=== PATIENT | male | born 1950 | race Caucasian/White ===

== ENCOUNTER → 2023-07-20 14:51 | Outpatient (REF) | payer MEDICARE, OTHER, SELFPAY ==
[2023-07-20 15:31] LABS: % Basophils 0.6 % (0-2); % Eosinophils 0.5 % (0-6); % Immature Granulocytes 0.4 % (0-0.5); % Monocytes 3.8 % (1.7-9.3); % Neutrophils 83.7 % (42.2-75.2); Absolute Basophils 0.1 10^3/uL (0-0.2); Absolute Eosinophils 0.1 10^3/uL (0-0.7); Absolute Lymphocytes 1.2 10^3/uL (1.2-3.4); Absolute Monocytes 0.4 10^3/uL (0.1-0.6); Absolute Neutrophils 9.1 10^3/uL (1.4-6.5); Hematocrit 38.9 % (39.0-52.0); Hemoglobin 13.2 g/dL (13.0-18.0); Mean Corp Hgb Conc. 33.9 g/dL (33.0-37.0); Mean Corpuscular Hgb 30.1 pg (27.0-31.0); Mean Corpuscular Volume 88.8 fL (80.0-94.0); Mean Platelet Volume 9.6 fL (7.4-10.4); Nucleated Red Blood Cells % 0 % (-); Platelet Count 247 10^3/uL (130-400); Red Blood Cell Count 4.38 10^6/uL (4.70-6.10); Red Cell Dist. Width 14.6 % (11.5-14.5); White Blood Cell Count 10.9 10^3/uL (4.8-10.8)
[2023-07-20 15:40] LABS: ALT (SGPT) 40 U/L (0-50); AST (SGOT) 33 U/L (17-59); Albumin 4.1 g/dl (3.5-5.0); Alkaline Phosphatase 58 U/L (38-126); Blood Urea Nitrogen 27 mg/dl (9-20); Calcium 9.5 mg/dl (8.4-10.2); Carbon Dioxide 27 mmol/L (22-30); Chloride 104 mmol/L (98-107); Glucose 120 mg/dl (70-99); Iron 101 ug/dl (49-181); Sodium 137 mmol/L (135-145); Total Bilirubin 0.6 mg/dl (0.2-1.3); Total Protein 7.4 g/dl (6.3-8.2); eGFR 45.21
[2023-07-20 15:47] LABS: Potassium 4.9 mmol/L (3.5-5.1)
[2023-07-20 15:50] LABS: Percent Saturation 30 % (20-50); Total Iron Binding Capacity 330 ug/dl (261-462)
[2023-07-20 15:58] LABS: Free T4 0.77 ng/dl (0.78-2.19)
[2023-07-20 16:12] LABS: TSH 5.65 uIU/ml (0.47-4.68)
[2023-07-20 17:53] LABS: Free T3 4.05 pg/ml (2.77-5.27)
== END ==
LOC: REG 14:51
PROVIDERS: ATTENDING PHYSICIAN Nurse Practitioner Family; FAMILY PHYSICIAN Family Medicine
DX: E06.3 Autoimmune thyroiditis (principal); R53.82 Chronic fatigue, unspecified
CPT/HCPCS: 36415; 80053; 83540; 83550; 84439; 84443; 84481; 85025

== ENCOUNTER → 2023-08-01 10:19 | Outpatient (REF) | payer MEDICARE, OTHER, SELFPAY ==
[2023-08-01 11:57] LABS: Urine Albumin Negative (Neg - Trace); Urine Bilirubin Negative (Negative); Urine Character Clear (Clear); Urine Color Yellow; Urine Glucose Negative (Negative); Urine Ketone Negative (Negative); Urine Leukocyte Negative (Negative); Urine Nitrite Negative (Negative); Urine Occult Blood Negative (Negative); Urine Specific Gravity 1.015 (<1.030); Urine Urobilinogen Negative (Neg - 1+); Urine pH 6.5 (5.0-9.0)
[2023-08-01 12:56] LABS: Protein/creatinine Ratio 0.1; Urine Protein 8 mg/dl
[2023-08-01 14:54] LABS: Urine Squamous Cell 0-2 /LPF (Few)
[2023-08-01 14:55] LABS: Urine Red Blood Cell 0-2 /HPF (0-2); Urine White Cell 0-2 /HPF (0-5)
[2023-08-02 15:34] LABS: Rheumatoid Agglutinin Less Than 10 IU (<10 IU)
[2023-08-02 18:40] LABS: Angiotensin-1-converting Enzym 27 U/L (16-85)
[2023-08-03 00:55] LABS: CCP Antibody IgG/IgA 7 Units (0-19)
[2023-08-03 04:02] LABS: ANA, IgG Reflex to HEp-2 Detected (None Detected)
[2023-08-03 11:04] LABS: SSA 52 (Ro)(ENA) Ab, IgG 2 AU/mL (0-40); SSA 60 (Ro)(ENA) Ab, IgG 1 AU/mL (0-40); SSB (La)(ENA) Ab, IgG 2 AU/mL (0-40)
[2023-08-04 02:05] LABS: Albumin 4.16 g/dL (3.75-5.01); Alpha 1 Globulin 0.37 g/dL (0.19-0.46); Alpha 2 Globulin 0.87 g/dL (0.48-1.05); SPEP IFE Reflex Not Done; Total Protein-Electrophoresis 7.9 g/dL (6.3-8.2)
[2023-08-04 12:13] LABS: ANA, HEp-2, IgG Detected (<1:80)
[2023-08-06 07:25] LABS: ANA Pattern Homogeneous
== END ==
LOC: RAD 10:19
PROVIDERS: ATTENDING PHYSICIAN Internal Medicine Rheumatology; FAMILY PHYSICIAN Family Medicine
DX: Z13.820 Encounter for screening for osteoporosis (principal); M35.00 Sjogren syndrome, unspecified; N28.9 Disorder of kidney and ureter, unspecified; R76.8 Other specified abnormal immunological findings in serum; Z51.81 Encounter for therapeutic drug level monitoring; M81.0 Age-related osteoporosis without current pathological fracture
CPT/HCPCS: 36415; 77080; 81003; 81015; 82164; 82570; 84155; 84156; 84165; 86038; 86039; 86140; 86200; 86235; 86430

== ENCOUNTER → 2023-08-21 14:12 | Outpatient (REF) | payer MEDICARE, OTHER, SELFPAY ==
[2023-08-21 15:23] LABS: Free T3 6.18 pg/ml (2.77-5.27)
[2023-08-21 15:36] LABS: TSH 0.04 uIU/ml (0.47-4.68)
== END ==
LOC: REG 14:12
PROVIDERS: ATTENDING PHYSICIAN Internal Medicine Endocrinology, Diabetes & Metabolism; FAMILY PHYSICIAN Family Medicine; OTHER PHYSICIAN Internal Medicine Critical Care Medicine; REFERRING PHYSICIAN Internal Medicine Rheumatology
DX: E05.90 Thyrotoxicosis, unspecified without thyrotoxic crisis or storm (principal)
CPT/HCPCS: 36415; 84439; 84443; 84481

== ENCOUNTER → 2023-09-12 13:40 | Outpatient (REF) | payer MEDICARE, OTHER, SELFPAY ==
[2023-09-12 14:44] LABS: C-Reactive Protein < 5.00 mg/L (0.0-10.00)
[2023-09-13 05:38] LABS: Complement C3 120 mg/dl (88-165)
[2023-09-15 02:11] LABS: ds-DNA Ab, IgG Reflex To Titer 6 IU (0-24)
[2023-09-15 07:58] LABS: Smith/RNP (ENA), IgG 89 Units (0-19)
[2023-09-15 09:51] LABS: Centromere Antibody 1 AU/mL (0-40); Scleroderma Antibody (Scl-70) 2 AU/mL (0-40)
== END ==
LOC: REG 13:40
PROVIDERS: ATTENDING PHYSICIAN Internal Medicine Rheumatology; FAMILY PHYSICIAN Family Medicine
DX: M35.00 Sjogren syndrome, unspecified (principal); M35.9 Systemic involvement of connective tissue, unspecified; N28.9 Disorder of kidney and ureter, unspecified; Z51.81 Encounter for therapeutic drug level monitoring
CPT/HCPCS: 36415; 83516; 86140; 86160; 86225; 86235

== ENCOUNTER → 2023-10-01 10:49 | Outpatient (REF) | payer MEDICARE, OTHER, SELFPAY ==
[2023-10-01 11:57] LABS: % Basophils 0.7 % (0-2); % Eosinophils 3.4 % (0-6); % Immature Granulocytes 0.3 % (0-0.5); % Monocytes 9.3 % (1.7-9.3); % Neutrophils 65.3 % (42.2-75.2); Absolute Basophils 0.1 10^3/uL (0-0.2); Absolute Eosinophils 0.3 10^3/uL (0-0.7); Absolute Lymphocytes 1.6 10^3/uL (1.2-3.4); Absolute Monocytes 0.7 10^3/uL (0.1-0.6); Hemoglobin 13.4 g/dL (13.0-18.0); Mean Corp Hgb Conc. 32.7 g/dL (33.0-37.0); Mean Corpuscular Hgb 30.1 pg (27.0-31.0); Mean Corpuscular Volume 92.1 fL (80.0-94.0); Mean Platelet Volume 9.5 fL (7.4-10.4); Nucleated Red Blood Cells % 0 % (-); Platelet Count 285 10^3/uL (130-400); Red Blood Cell Count 4.45 10^6/uL (4.70-6.10); Red Cell Dist. Width 14.6 % (11.5-14.5); White Blood Cell Count 7.6 10^3/uL (4.8-10.8)
[2023-10-01 14:21] LABS: ALT (SGPT) 26 U/L (0-50); AST (SGOT) 28 U/L (17-59); Albumin 4.3 g/dl (3.5-5.0); Alkaline Phosphatase 61 U/L (38-126); Direct Bilirubin 0.4 mg/dl (0.0-0.4); Total Bilirubin 0.6 mg/dl (0.2-1.3); Total Protein 7.7 g/dl (6.3-8.2)
== END ==
LOC: REG 10:49
PROVIDERS: ATTENDING PHYSICIAN Internal Medicine Critical Care Medicine; FAMILY PHYSICIAN Family Medicine
DX: J84.9 Interstitial pulmonary disease, unspecified (principal); Z79.899 Other long term (current) drug therapy
CPT/HCPCS: 36415; 80076; 85025

== ENCOUNTER → 2023-10-22 11:06 | Outpatient (REF) | payer MEDICARE, OTHER, SELFPAY ==
[2023-10-22 12:55] LABS: ALT (SGPT) 36 U/L (0-50); AST (SGOT) 30 U/L (17-59)
[2023-10-22 13:13] LABS: Free T3 3.24 pg/ml (2.77-5.27); Free T4 0.75 ng/dl (0.78-2.19)
== END ==
LOC: REG 11:06
PROVIDERS: ATTENDING PHYSICIAN Internal Medicine Endocrinology, Diabetes & Metabolism; FAMILY PHYSICIAN Family Medicine
DX: E06.3 Autoimmune thyroiditis (principal)
CPT/HCPCS: 36415; 84439; 84443; 84450; 84460; 84481

== ENCOUNTER → 2023-10-26 11:50 | Outpatient (REF) | payer MEDICARE, OTHER, SELFPAY ==
[2023-10-26 12:41] LABS: % Basophils 0.8 % (0-2); % Eosinophils 2.4 % (0-6); % Immature Granulocytes 0.4 % (0-0.5); % Lymphocytes 18.7 % (20.5-51.1); % Monocytes 7.3 % (1.7-9.3); % Neutrophils 70.4 % (42.2-75.2); Absolute Basophils 0.1 10^3/uL (0-0.2); Absolute Eosinophils 0.3 10^3/uL (0-0.7); Absolute Lymphocytes 1.9 10^3/uL (1.2-3.4); Absolute Monocytes 0.8 10^3/uL (0.1-0.6); Absolute Neutrophils 7.3 10^3/uL (1.4-6.5); Hemoglobin 14.5 g/dL (13.0-18.0); Mean Corpuscular Volume 91.1 fL (80.0-94.0); Mean Platelet Volume 9.8 fL (7.4-10.4); Nucleated Red Blood Cells % 0 % (-); Platelet Count 276 10^3/uL (130-400); Red Blood Cell Count 4.83 10^6/uL (4.70-6.10); Red Cell Dist. Width 14.8 % (11.5-14.5); White Blood Cell Count 10.3 10^3/uL (4.8-10.8)
[2023-10-26 13:05] LABS: ALT (SGPT) 59 U/L (0-50); AST (SGOT) 41 U/L (17-59); Albumin 4.4 g/dl (3.5-5.0); Alkaline Phosphatase 66 U/L (38-126); Direct Bilirubin 0.3 mg/dl (0.0-0.4); Total Bilirubin 0.4 mg/dl (0.2-1.3); Total Protein 8.1 g/dl (6.3-8.2)
== END ==
LOC: REG 11:50
PROVIDERS: ATTENDING PHYSICIAN Internal Medicine Critical Care Medicine; FAMILY PHYSICIAN Family Medicine
DX: J84.9 Interstitial pulmonary disease, unspecified (principal); Z79.899 Other long term (current) drug therapy
CPT/HCPCS: 36415; 80076; 85025

== ENCOUNTER → 2023-11-12 11:02 | Outpatient (REF) | payer MEDICARE, OTHER, SELFPAY ==
[2023-11-12 12:02] LABS: % Basophils 0.7 % (0-2); % Eosinophils 2.7 % (0-6); % Immature Granulocytes 0.2 % (0-0.5); % Lymphocytes 18.7 % (20.5-51.1); % Neutrophils 69.7 % (42.2-75.2); Absolute Basophils 0.1 10^3/uL (0-0.2); Absolute Eosinophils 0.3 10^3/uL (0-0.7); Absolute Lymphocytes 1.9 10^3/uL (1.2-3.4); Absolute Monocytes 0.8 10^3/uL (0.1-0.6); Absolute Neutrophils 7.1 10^3/uL (1.4-6.5); Hematocrit 44.7 % (39.0-52.0); Hemoglobin 14.4 g/dL (13.0-18.0); Mean Corp Hgb Conc. 32.2 g/dL (33.0-37.0); Mean Corpuscular Hgb 30.4 pg (27.0-31.0); Mean Corpuscular Volume 94.5 fL (80.0-94.0); Nucleated Red Blood Cells % 0 % (-); Platelet Count 204 10^3/uL (130-400); Red Blood Cell Count 4.73 10^6/uL (4.70-6.10); Red Cell Dist. Width 14.7 % (11.5-14.5); White Blood Cell Count 10.1 10^3/uL (4.8-10.8)
[2023-11-12 12:54] LABS: ALT (SGPT) 28 U/L (0-50); AST (SGOT) 25 U/L (17-59); Alkaline Phosphatase 51 U/L (38-126); Blood Urea Nitrogen 34 mg/dl (9-20); Calcium 9.7 mg/dl (8.4-10.2); Carbon Dioxide 32 mmol/L (22-30); Chloride 100 mmol/L (98-107); Glucose 127 mg/dl (70-99); Potassium 4.3 mmol/L (3.5-5.1); Sodium 141 mmol/L (135-145); Total Bilirubin 0.5 mg/dl (0.2-1.3); Total Protein 7.6 g/dl (6.3-8.2); eGFR 53.07
== END ==
LOC: REG 11:02
PROVIDERS: ATTENDING PHYSICIAN Internal Medicine Rheumatology; FAMILY PHYSICIAN Family Medicine
DX: M35.9 Systemic involvement of connective tissue, unspecified (principal); Z51.81 Encounter for therapeutic drug level monitoring
CPT/HCPCS: 36415; 80053; 85025; 86140; 86480

== ENCOUNTER → 2023-11-23 11:01 | Outpatient (REF) | payer MEDICARE, OTHER, SELFPAY ==
[2023-11-23 12:32] LABS: AST (SGOT) 27 U/L (17-59)
[2023-11-23 12:39] LABS: ALT (SGPT) 27 U/L (0-50)
[2023-11-23 12:47] LABS: Free T3 3.07 pg/ml (2.77-5.27); Free T4 0.73 ng/dl (0.78-2.19)
== END ==
LOC: REG 11:01
PROVIDERS: ATTENDING PHYSICIAN Internal Medicine Endocrinology, Diabetes & Metabolism; FAMILY PHYSICIAN Family Medicine
DX: E06.3 Autoimmune thyroiditis (principal)
CPT/HCPCS: 36415; 84439; 84443; 84450; 84460; 84481

== ENCOUNTER → 2023-12-17 11:37 | Outpatient (REF) | payer MEDICARE, OTHER, SELFPAY ==
[2023-12-17 13:53] LABS: Free T3 3.35 pg/ml (2.77-5.27); Free T4 0.81 ng/dl (0.78-2.19)
[2023-12-17 14:07] LABS: TSH 8.75 uIU/ml (0.47-4.68)
== END ==
LOC: REG 11:37
PROVIDERS: ATTENDING PHYSICIAN Internal Medicine Endocrinology, Diabetes & Metabolism; FAMILY PHYSICIAN Family Medicine; OTHER PHYSICIAN Internal Medicine Rheumatology; REFERRING PHYSICIAN Internal Medicine Critical Care Medicine
DX: E06.3 Autoimmune thyroiditis (principal)
CPT/HCPCS: 36415; 84439; 84443; 84481

== ENCOUNTER → 2024-01-08 11:41 | Outpatient (REF) | payer MEDICARE, OTHER, SELFPAY | LOC: HWRAD 11:41 | PROVIDERS: ATTENDING PHYSICIAN Internal Medicine Critical Care Medicine; FAMILY PHYSICIAN Family Medicine; REFERRING PHYSICIAN Internal Medicine Endocrinology, Diabetes & Metabolism | DX: J84.9 Interstitial pulmonary disease, unspecified (principal) | CPT/HCPCS: 71250 ==

== ENCOUNTER → 2024-01-14 14:01 | Outpatient (REF) | payer MEDICARE, OTHER, SELFPAY ==
[2024-01-14 15:11] LABS: % Eosinophils 2.5 % (0-6); % Immature Granulocytes 0.3 % (0-0.5); % Lymphocytes 23.6 % (20.5-51.1); % Monocytes 10.1 % (1.7-9.3); % Neutrophils 62.5 % (42.2-75.2); Absolute Basophils 0.1 10^3/uL (0-0.2); Absolute Eosinophils 0.2 10^3/uL (0-0.7); Absolute Lymphocytes 2.2 10^3/uL (1.2-3.4); Absolute Monocytes 0.9 10^3/uL (0.1-0.6); Absolute Neutrophils 5.7 10^3/uL (1.4-6.5); Hematocrit 41.6 % (39.0-52.0); Hemoglobin 13.9 g/dL (13.0-18.0); Mean Corp Hgb Conc. 33.4 g/dL (33.0-37.0); Mean Corpuscular Hgb 30.5 pg (27.0-31.0); Mean Corpuscular Volume 91.2 fL (80.0-94.0); Mean Platelet Volume 10.5 fL (7.4-10.4); Nucleated Red Blood Cells % 0 % (-); Platelet Count 257 10^3/uL (130-400); Red Blood Cell Count 4.56 10^6/uL (4.70-6.10); Red Cell Dist. Width 14.1 % (11.5-14.5); White Blood Cell Count 9.2 10^3/uL (4.8-10.8)
[2024-01-14 15:41] LABS: Erythrocyte Sed Rate 22 mm/hour (0-20)
[2024-01-14 16:26] LABS: ALT (SGPT) 21 U/L (0-50); AST (SGOT) 27 U/L (17-59); Albumin 4.2 g/dl (3.5-5.0); Alkaline Phosphatase 61 U/L (38-126); Direct Bilirubin 0.2 mg/dl (0.0-0.4); Total Bilirubin 0.6 mg/dl (0.2-1.3); Total Protein 7.7 g/dl (6.3-8.2)
== END ==
LOC: REG 14:01
PROVIDERS: ATTENDING PHYSICIAN Internal Medicine Critical Care Medicine; FAMILY PHYSICIAN Family Medicine
DX: J84.9 Interstitial pulmonary disease, unspecified (principal); Z79.899 Other long term (current) drug therapy
CPT/HCPCS: 36415; 80076; 85025; 85652

== ENCOUNTER → 2024-01-29 14:22 | Outpatient (REF) | payer MEDICARE, OTHER, SELFPAY ==
[2024-01-29 17:49] LABS: Free T3 7.19 pg/ml (2.77-5.27)
[2024-01-29 18:05] LABS: TSH Reflex To Free T4 < 0.02 uIU/ml (0.47-4.68)
[2024-01-29 18:31] LABS: Free T4 1.99 ng/dl (0.78-2.19)
== END ==
LOC: REG 14:22
PROVIDERS: ATTENDING PHYSICIAN Internal Medicine Endocrinology, Diabetes & Metabolism; FAMILY PHYSICIAN Family Medicine
DX: E06.3 Autoimmune thyroiditis (principal)
CPT/HCPCS: 36415; 84439; 84443; 84481

== ENCOUNTER → 2024-02-18 07:13 | Outpatient (REF) | payer MEDICARE, OTHER, SELFPAY | LOC: RAD 07:13 | PROVIDERS: ATTENDING PHYSICIAN Internal Medicine Endocrinology, Diabetes & Metabolism; FAMILY PHYSICIAN Family Medicine | DX: E05.90 Thyrotoxicosis, unspecified without thyrotoxic crisis or storm (principal); E06.3 Autoimmune thyroiditis | CPT/HCPCS: 78014; A9516 ==

== ENCOUNTER → 2024-02-27 11:55 | Outpatient (REF) | payer MEDICARE, OTHER, SELFPAY | LOC: RAD 11:55 | PROVIDERS: ATTENDING PHYSICIAN Internal Medicine Endocrinology, Diabetes & Metabolism | DX: E06.3 Autoimmune thyroiditis (principal); E05.90 Thyrotoxicosis, unspecified without thyrotoxic crisis or storm | CPT/HCPCS: 79005; A9517 ==

== ENCOUNTER → 2024-03-06 12:15 | Outpatient (REF) | payer MEDICARE, OTHER, SELFPAY ==
[2024-03-06 13:29] LABS: % Basophils 0.5 % (0-2); % Eosinophils 2.3 % (0-6); % Immature Granulocytes 0.4 % (0-0.5); % Monocytes 5.2 % (1.7-9.3); % Neutrophils 80.6 % (42.2-75.2); Absolute Basophils 0.1 10^3/uL (0-0.2); Absolute Eosinophils 0.3 10^3/uL (0-0.7); Absolute Immature Granulocytes 0.1 10^3/uL (0-0.05); Absolute Lymphocytes 1.3 10^3/uL (1.2-3.4); Absolute Monocytes 0.6 10^3/uL (0.1-0.6); Absolute Neutrophils 9.3 10^3/uL (1.4-6.5); Hematocrit 45.4 % (39.0-52.0); Hemoglobin 14.6 g/dL (13.0-18.0); Mean Corp Hgb Conc. 32.2 g/dL (33.0-37.0); Mean Corpuscular Hgb 29.9 pg (27.0-31.0); Mean Corpuscular Volume 92.8 fL (80.0-94.0); Mean Platelet Volume 9.9 fL (7.4-10.4); Nucleated Red Blood Cells % 0 % (-); Platelet Count 210 10^3/uL (130-400); Red Blood Cell Count 4.89 10^6/uL (4.70-6.10); Red Cell Dist. Width 13.1 % (11.5-14.5); White Blood Cell Count 11.5 10^3/uL (4.8-10.8)
[2024-03-06 13:45] LABS: ALT (SGPT) 28 U/L (0-50); AST (SGOT) 24 U/L (17-59); Albumin 3.8 g/dl (3.5-5.0); Alkaline Phosphatase 49 U/L (38-126); Blood Urea Nitrogen 29 mg/dl (9-20); Calcium 9.6 mg/dl (8.4-10.2); Carbon Dioxide 34 mmol/L (22-30); Chloride 95 mmol/L (98-107); Glucose 112 mg/dl (70-99); Potassium 4.6 mmol/L (3.5-5.1); Sodium 141 mmol/L (135-145); Total Bilirubin 0.5 mg/dl (0.2-1.3); eGFR 57.65
== END ==
LOC: REG 12:15
PROVIDERS: ATTENDING PHYSICIAN Internal Medicine Rheumatology; FAMILY PHYSICIAN Family Medicine
DX: M35.9 Systemic involvement of connective tissue, unspecified (principal); R76.8 Other specified abnormal immunological findings in serum; Z51.81 Encounter for therapeutic drug level monitoring
CPT/HCPCS: 36415; 80053; 85025; 86140

== ENCOUNTER → 2024-03-24 13:10 | Outpatient (REF) | payer MEDICARE, OTHER, SELFPAY ==
[2024-03-24 15:11] LABS: Free T3 2.51 pg/ml (2.77-5.27)
== END ==
LOC: REG 13:10
PROVIDERS: ATTENDING PHYSICIAN Internal Medicine Endocrinology, Diabetes & Metabolism; FAMILY PHYSICIAN Family Medicine
DX: E06.3 Autoimmune thyroiditis (principal)
CPT/HCPCS: 36415; 84439; 84443; 84481

== ENCOUNTER → 2024-04-21 14:05 | Outpatient (REF) | payer MEDICARE, OTHER, SELFPAY ==
[2024-04-21 16:23] LABS: Free T4 0.76 ng/dl (0.78-2.19)
== END ==
LOC: REG 14:05
PROVIDERS: ATTENDING PHYSICIAN Internal Medicine Endocrinology, Diabetes & Metabolism; FAMILY PHYSICIAN Family Medicine
DX: E06.3 Autoimmune thyroiditis (principal)
CPT/HCPCS: 36415; 84439; 84443

== ENCOUNTER → 2024-05-05 13:41 | Outpatient (REF) | payer MEDICARE, OTHER, SELFPAY ==
[2024-05-05 15:44] LABS: ALT (SGPT) 30 U/L (0-50); AST (SGOT) 32 U/L (17-59); Albumin 4.4 g/dl (3.5-5.0); Alkaline Phosphatase 45 U/L (38-126); Direct Bilirubin 0.2 mg/dl (0.0-0.4); Total Bilirubin 0.8 mg/dl (0.2-1.3)
== END ==
LOC: REG 13:41
PROVIDERS: ATTENDING PHYSICIAN Internal Medicine Critical Care Medicine; FAMILY PHYSICIAN Family Medicine
DX: J84.9 Interstitial pulmonary disease, unspecified (principal); Z79.899 Other long term (current) drug therapy
CPT/HCPCS: 36415; 80076

== ENCOUNTER → 2024-05-15 14:17 | Outpatient (REF) | payer MEDICARE, OTHER, SELFPAY ==
[2024-05-15 14:38] LABS: % Basophils 0.5 % (0-2); % Eosinophils 1.1 % (0-6); % Immature Granulocytes 0.3 % (0-0.5); % Lymphocytes 14.7 % (20.5-51.1); % Monocytes 6.8 % (1.7-9.3); % Neutrophils 76.6 % (42.2-75.2); Absolute Basophils 0.1 10^3/uL (0-0.2); Absolute Eosinophils 0.1 10^3/uL (0-0.7); Absolute Lymphocytes 1.7 10^3/uL (1.2-3.4); Absolute Monocytes 0.8 10^3/uL (0.1-0.6); Absolute Neutrophils 8.9 10^3/uL (1.4-6.5); Hemoglobin 15.1 g/dL (13.0-18.0); Mean Corp Hgb Conc. 32.1 g/dL (33.0-37.0); Mean Corpuscular Hgb 30.4 pg (27.0-31.0); Mean Corpuscular Volume 94.8 fL (80.0-94.0); Mean Platelet Volume 9.2 fL (7.4-10.4); Nucleated Red Blood Cells % 0 % (-); Platelet Count 201 10^3/uL (130-400); Red Blood Cell Count 4.96 10^6/uL (4.70-6.10); Red Cell Dist. Width 17.6 % (11.5-14.5); White Blood Cell Count 11.6 10^3/uL (4.8-10.8)
[2024-05-15 15:06] LABS: Erythrocyte Sed Rate 23 mm/hour (0-20)
== END ==
LOC: REG 14:17
PROVIDERS: ATTENDING PHYSICIAN Internal Medicine Critical Care Medicine; FAMILY PHYSICIAN Family Medicine
DX: J84.9 Interstitial pulmonary disease, unspecified (principal); Z79.899 Other long term (current) drug therapy
CPT/HCPCS: 36415; 85025; 85652

== ENCOUNTER 2024-05-23 06:58 | Day surgery (SDC) | payer MEDICARE, OTHER, SELFPAY ==
[2024-05-23 08:10] VITALS: BP 138/88
[2024-05-23 09:46] VITALS: BP 112/67
[2024-05-23 10:00] VITALS: BP 120/75
[2024-05-23 10:15] VITALS: BP 126/82
== END 2024-05-23 10:42 | disposition home or self-care (01) ==
LOC: GI 06:58
PROVIDERS: ATTENDING PHYSICIAN Internal Medicine Gastroenterology
DX: Z12.11 Encounter for screening for malignant neoplasm of colon (principal); K64.8 Other hemorrhoids; K57.30 Diverticulosis of large intestine without perforation or abscess without bleeding
CPT/HCPCS: G0121

== ENCOUNTER 2024-06-09 12:42 | Inpatient (IN) | payer MEDICARE, OTHER, SELFPAY ==
[2024-06-09] VITALS (22 sets, daily range): BP systolic 74–110; BP diastolic 54–89; BMI 24.6; BMI 25.4
--- NOTE | 2024-06-09 11:00 | EDRN ---
Received patient from Triage on O2 5LNC. sttaed that she increased the patient's O2 to 5LNC this morning for c/o increased SOB. Pulse ox on 5LNC 74-76%. Patient placed on 100% NRB mask. at bedside. Respiratory called and placed
patient on O2 50L 70%. Pulse ox 93-95%.
--- NOTE | 2024-06-09 11:01 | ED.GENMED ---
History of Present Illness
General
Chief Complaint: Breathing Problem
Source: patient and spouse
Exam Limitations: clinical condition
Time Seen by Provider: 06/09/24 10:43
Nursing documentation reviewed up to this point in time: agreed with
History of Present Illness
History of Present Illness:
74-year-old male acute on chronic shortness of breath suffers of pulmonary fibrosis usually on 4 L, chronically on steroids prednisone 10 mg a day was on another oral agent recently was stopped was seen at [facility] for lung transplant evaluation told he
was not a candidate due to plaque in his vessels, also recently had some issues with his thyroid sounds radioablation, and is on replacement therapy now
Much of the history obtained from the who is fairly knowledgeable about the patient's presentation
Review of Systems
Review of Systems
All Other Systems: Not applicable
Constitutional: Reports fatigue
Respiratory: Reports trouble breathing
Phy Exam
Physical Exam
Physical Exam:
Physical Exam
General: Dyspneic appearing male pursed of breathing
Neck: No jaundice
Heart: s1/s2 regular rate and rhythm, no murmur. equal radial pulses.
Lungs: Tachypneic crackles right greater than
Abdomen: Nontender
Neuro: alert and oriented. no focal neurological deficits
Skin: no rash
Psychiatric: well kept. interactive and cooperative
Extremities: no edema.
Scores
Heart Failure Risk
Heart Failure Risk Score: Not Applicable
Course
Orders/Labs/Results
Orders:
Orders
06/09/24 10:43
Cardiac Monitoring- Treatment ONCE
0.9% Sodium Chloride 1000 ml [Nss] 1,000 ml IV BOLUS
06/09/24 10:44
Electrocardiogram (*1) Stat
Reason for Study: Other
Other Reason for Exam: pneumonia
EKG- Treatment ONCE
CR Chest Portable - 1 View Urgent
Comment:
Reason For Exam: sob PF
Reason Study Needs to be Portable: Patient Unstable
06/09/24 10:45
O2 Therapy [RESP] Urgent
Titrate/Wean O2 to maintain O2 sat greater than (%): 94
06/09/24 10:47
Complete Blood Count/With Diff Urgent
Comprehensive Metabolic Panel Urgent
Free T3 Urgent
Comment: ADD ON
Free T4 Urgent
Comment: ADD ON
TSH Urgent
Comment: ADD ON
Hydrocortisone Sod Succinate [Solu-Cortef] 100 mg IV NOW STA
06/09/24 10:49
Arterial Blood Gas Urgent
%Oxygen/Room Air: hi flow/nrb
Lactic Acid Q4H
Comment: CANCEL 2nd LACTIC ACID IF 1st LACTIC ACID IS LESS THAN 2
Blood Culture Q30M
DK Source: Blood/Venous
Specimen Description:
Blood Culture Q30M
DK Source: Blood/Venous
Specimen Description:
06/09/24 10:55
Add On- LAB Urgent
Tests Added?: tsh, free t4, free t3
06/09/24 10:59
COVID-19 Antigen Urgent
Source: Nasal Swab
NT-proBNP Urgent
Troponin I Urgent
INF RAPID [Influenza A+B Rapid Molecular] Urgent
DK Source: Nasal Swab
Specimen Description:
06/09/24 11:02
O2 Therapy [RESP] Urgent
Titrate/Wean O2 to maintain O2 sat greater than (%): 92
06/09/24 11:39
0.9% Sodium Chloride 1000 ml [Nss] 2,100 ml IV NOW STA
Piperacillin/Tazo 3.375 Gram [Zosyn] 3.375 gram in 50 ml IV NOW
06/09/24 11:43
Add On- LAB Urgent
Tests Added?: Troponin
06/09/24 12:26
Admit/Transfer Patient As Directed
Co-Sign Provider:
Level of Care: Inpatient admission
Assign to:: ICU
Physician / Group: prisca
Diagnosis: right pneumonia, IPF
Reason for Hospitalization: right pneumonia, IPF
Expected length of stay greater than two midnights?: Yes
ELOS- Estimated Length of Stay in days: 2
I certify the patient meets the requirements for IP care: Yes
PRN Pain Medication Management As Directed
May give lesser potent ordered pain med per pt: Yes
preference::
Protocol:: Medication orders for pain may be administered in a
manner that supports deferring to patient preference
when the pt is:
- Requesting an ordered lesser potent pain medication.
Least to most potent pain medications are defined
as: acetaminophen < NSAID < tramadol < opioids
(morphine, oxycodone, hydromorphone).
- Requesting a lesser dose of the same medication IF
ORDERED.
- Requesting a less intrusive route of administration
if both routes are prescribed by the provider (PO <
IV).
06/09/24 12:27
Code Status As Directed
Resuscitation Status: Do not resuscitate
Reached after discussion with pt or family/Healthcare POA: Yes
DNR Bracelet Application ONCE
06/09/24 12:31
Legionella Urinary Antigen Urgent
DK Source: Urine
Specimen Description:
MRSA Screen Routine
DK Source: Nose
Specimen Description:
Strep pneumoniae Antigen Urgent
DK Source: Urine
Specimen Description:
06/09/24 12:32
Respiratory Culture/Gram Stain Urgent
DK Source: Sputum
Specimen Description:
06/09/24 14:45
Lactic Acid Q4H
Comment: CANCEL 2nd LACTIC ACID IF 1st LACTIC ACID IS LESS THAN 2
Abnormal Lab Results
06/09/24 06/09/24 06/09/24
10:47 10:49 10:59
WBC 16.3 H 10^3/uL
(4.8-10.8)
RBC 4.21 L 10^6/uL
(4.70-6.10)
MCV 98.6 H fL
(80.0-94.0)
MCH 32.1 H pg
(27.0-31.0)
MCHC 32.5 L g/dL
(33.0-37.0)
RDW 16.7 H %
(11.5-14.5)
MPV 11.0 H fL
(7.4-10.4)
Abs Immat Gran (auto) 0.1 H 10^3/uL
(0-0.05)
Absolute Neuts (auto) 13.1 H 10^3/uL
(1.4-6.5)
Absolute Monos (auto) 1.6 H 10^3/uL
(0.1-0.6)
Neutrophils % 80.4 H %
(42.2-75.2)
Lymphocytes % 9.3 L %
(20.5-51.1)
Monocytes % 9.5 H %
(1.7-9.3)
pO2 114 H mmHg
(83-108)
ABG O2 Sat (Measured) 99.5 H %
(94-98)
Sodium 133 L mmol/L
(135-145)
Potassium 5.3 H mmol/L
(3.5-5.1)
Chloride 94 L mmol/L
(98-107)
BUN 29 H mg/dl
(9-20)
Creatinine 1.8 H mg/dL
(0.7-1.3)
Glucose 258 H mg/dl
(70-99)
Lactic Acid 5.5 H* mmol/L
(0.7-2.0)
Total Bilirubin 1.8 H mg/dl
(0.2-1.3)
Troponin I 0.103 H* ng/ml
06/09/24 10:47
06/09/24 10:47
Vital Signs
Initial and Last Documented VS:
Initial Vital Signs
Pulse Resp BP Pulse Ox
122 34 74/54 74
06/09/24 10:35 06/09/24 10:35 06/09/24 10:35 06/09/24 10:35
Last Documented Vital Signs
Pulse Resp BP Pulse Ox
103 39 89/73 99
06/09/24 12:45 06/09/24 12:45 06/09/24 12:30 06/09/24 12:45
*Radiology
Radiology exam reviewed: radiology read reviewed
*Pulse Oximetry
Patient hypoxic: yes
*EKG
Interpreted by ED Provider?: Yes
Interpretation: abnormal
Comparison EKG: no comparison EKG present
Heart Rate: 78
Rate: normal
Rhythm: sinus
Ischemia: T-wave inversion
*Tre[employer] Associate Interpretation
Rate: normal
Interpretation: normal
Heart Rate: 78
Rhythm: sinus
*Critical Care Note
Total Time (30-74mins, 75-104mins- exclusive of procedures): 34
Data Reviewed
Review of Other/Old Records Reveals: Records
Source: patient, records and spouse
Further Testing Considered But Not Given:
ct scan
Update Note
Update Note:
bp soft
wbc up
cxr noted
ABG noted, message sent to pulmonary hospitalist 30 cc/kg saline ordered also antibiotics
ED Attending Note
-
Portions of this chart may have been created with voice recognition software.� Occasional wrong word or��sound alike� substitutions may have occurred due to the inherent limitations of voice recognition software.
Discharge Plan
Departure
Patient Disposition: Admit
Date of Disposition: 06/09/24
Time of Disposition: 11:47
Admit to: IMU
Presentation/result/management discussed w/ accepting MD/DO: Hospitalist
Condition: Serious
Covid-19: Not Applicable
Discharge Problem:
Respiratory failure, Pulmonary fibrosis
Interventions
Interventions:
*Risk Screen - Suicide Last Done: 06/09/24 10:31
*General Assessment Last Done: 06/09/24 10:31
*Neglect/Abuse Screening Last Done: 06/09/24 10:31
ED- Fall Risk Assessment Last Done: 06/09/24 10:45
*ED COVID-19 Vaccine History Last Done: 06/09/24 10:45
ED- Cardiac Assessment Last Done: 06/09/24 10:45
ED- Pulmonary Assessment Last Done: 06/09/24 10:45
[2024-06-09] MEDS: SOLU-CORTEF 100 MG IV (11:05)
[2024-06-09] MEDS: NSS 1000 IV ×2 (11:06→15:01)
[2024-06-09 11:19] LABS: B.E. -3.1 mmol/L; O2 Saturation % 99.5 % (94-98); PCO2 39 mmHg (35-48); PO2 114 mmHg (83-108); pH 7.36 (7.35-7.45)
[2024-06-09 11:19] LABS: % Basophils 0.3 % (0-2); % Immature Granulocytes 0.5 % (0-0.5); % Lymphocytes 9.3 % (20.5-51.1); % Monocytes 9.5 % (1.7-9.3); % Neutrophils 80.4 % (42.2-75.2); Absolute Basophils 0.1 10^3/uL (0-0.2); Absolute Immature Granulocytes 0.1 10^3/uL (0-0.05); Absolute Lymphocytes 1.5 10^3/uL (1.2-3.4); Absolute Monocytes 1.6 10^3/uL (0.1-0.6); Absolute Neutrophils 13.1 10^3/uL (1.4-6.5); Hematocrit 41.5 % (39.0-52.0); Hemoglobin 13.5 g/dL (13.0-18.0); Mean Corp Hgb Conc. 32.5 g/dL (33.0-37.0); Mean Corpuscular Hgb 32.1 pg (27.0-31.0); Mean Corpuscular Volume 98.6 fL (80.0-94.0); Nucleated Red Blood Cells % 0 % (-); Platelet Count 191 10^3/uL (130-400); Red Blood Cell Count 4.21 10^6/uL (4.70-6.10); Red Cell Dist. Width 16.7 % (11.5-14.5); White Blood Cell Count 16.3 10^3/uL (4.8-10.8)
[2024-06-09 11:33] LABS: AST (SGOT) 42 U/L (17-59); Albumin 4.2 g/dl (3.5-5.0); Alkaline Phosphatase 64 U/L (38-126); Blood Urea Nitrogen 29 mg/dl (9-20); Calcium 9.1 mg/dl (8.4-10.2); Carbon Dioxide 22 mmol/L (22-30); Chloride 94 mmol/L (98-107); Estimated Creatinine Clearance 35 ml/min; Glucose 258 mg/dl (70-99); Potassium 5.3 mmol/L (3.5-5.1); Sodium 133 mmol/L (135-145); Total Bilirubin 1.8 mg/dl (0.2-1.3); Total Protein 7.7 g/dl (6.3-8.2); eGFR 39.01
[2024-06-09 11:36] LABS: Lactic Acid 5.5 mmol/L (0.7-2.0)
[2024-06-09 11:40] LABS: ALT (SGPT) 41 U/L (0-50)
[2024-06-09 11:40] LABS: NT-proBNP 8080 pg/ml
[2024-06-09 11:44] LABS: COVID-19 Antigen Negative (Negative)
[2024-06-09] MEDS: ZOSYN 50 IV ×3 (11:47→23:47)
[2024-06-09] MEDS: NSS 2100 ML IV (11:48)
[2024-06-09 12:18] LABS: Troponin I 0.103 ng/ml
[2024-06-09 12:26] LABS: Free T3 2.85 pg/ml (2.77-5.27); Free T4 1.75 ng/dl (0.78-2.19)
--- NOTE | 2024-06-09 12:34 | HPS.HSE ---
Addendum entered and electronically signed by Ulises Hoffmann MD 06/09/24 21:44:
CT PE shows small peripheral right sided pulmonary emboli. Heparin drip started.
Original Note:
Family Physician
-
Family Physician: Genaro Boo
Chief Complaint
-
shortness of breath
History of Present Illness
74-year-old male past medical history of pulmonary fibrosis on 4 L oxygen, crush injury of left chest status post pneumonectomy of left lower lung, COPD, bronchiectasis, restrictive lung disease, MARTÍN positive, Graves' disease/autoimmune thyroiditis
status post iodine earlier this year, hypothyroidism, hearing loss, presenting with severely worsening shortness of breath over the past few days with minimal cough. He had chills but denies fever. He has been having chest pain that is worse with
breathing. He did have some diarrhea and abdominal discomfort yesterday and an episode of loose stools this morning.
He was hypoxemic on 4 L of oxygen down to 70s so he was brought to the hospital.
No history of cardiac problems.
Not a lung transplant candidate due to atherosclerosis in his chest/abdomen.
He was recently found to have Graves' disease/autoimmune thyroiditis and underwent iodine treatment several months ago. Since then is found to be hypothyroid and was started on levothyroxine in the epidemiologist has been closely monitoring TSH
and thyroid levels.
He is a former smoker. Denies alcohol use.
No family history of autoimmune disorders.
Medical History
Past Medical History
Past Medical History: Reports Other (pulmonary fibrosis on 4 L oxygen, crush injury of left chest status post pneumonectomy of left lower lung, COPD, bronchiectasis, restrictive lung disease, MARTÍN positive, Graves' disease/autoimmune thyroiditis
status post iodine earlier this year, hypothyroidism, hearing loss)
Past Surgical History: Reports Other (Industrial accident 1965, resection of left lower lung)
Social History
Tobacco: Former Smoker
Alcohol: None
Drug: None
Family History
Family History: Not pertinent
Allergies / Home Medications
Allergies reflects when Allergies were last updated in [email or web address].
Home Medications with original date entered in [email or web address]
Allergy/Medication List:
Allergies
Allergy/AdvReac Type Severity Reaction Status Date / Time
No Known Allergies Allergy Verified 06/09/24 10:31
Home Medications
calcium carbonate 500 mg PO DAILY 05/23/24
cholecalciferol (vitamin D3) 50 mcg (2,000 unit) tablet (Vitamin D3) 50 mcg PO DAILY 05/23/24
fexofenadine 180 mg tablet 180 mg PO DAILY 05/23/24
levothyroxine 112 mcg tablet 112 mcg PO DAILY 05/23/24
nintedanib 100 mg capsule (Ofev) 100 mg PO Q12H 05/23/24
ondansetron 4 mg disintegrating tablet 4 mg PO Q6HPRN PRN nausea 05/23/24
prednisone 10 mg tablet 10 mg PO DAILY 05/23/24
cyanocobalamin (vitamin B-12) 1,000 mcg tablet 1,000 mcg PO DAILY 06/09/24
ferrous sulfate 325 mg (65 mg iron) tablet 325 mg PO MOWEFR 06/09/24
magnesium oxide 400 mg PO DAILY 06/09/24
omega 3-dkk-cnt-fish oil 1,000 mg (120 mg-180 mg) capsule (Fish Oil) 2 cap PO DAILY 06/09/24
therapeutic multivitamin 1 tab PO DAILY 06/09/24
Review of Systems
-
History Source: Patient
Constitutional: Reports No Symptoms
EENT: Reports No Symptoms
Respiratory: Reports See HPI
Cardiac: Reports See HPI
Abdomen/GI: Reports See HPI
: Reports No Symptoms
Musculoskeletal: Reports No Symptoms
Skin: Reports No Symptoms
Neurological: Reports No Symptoms
Endocrine: Reports No Symptoms
Hematologic/Lymphatic: Reports No Symptoms
Psych: Reports No Symptoms
Physical Exam
Vital Signs
Vital Signs
Pulse Resp BP Pulse Ox
109 39 103/66 99
06/09/24 12:00 06/09/24 12:00 06/09/24 12:00 06/09/24 12:00
Physical Exam
General: Well Developed, Well Nourished and No Apparent Distress
HEENT: NormoCephalic, Moist mucous membranes and Atraumatic
Respiratory: Wheezes and Rales
Cardiac: S1/S2 and Regular Rhythm; No Murmur or Rub
GI: Soft, Non Tender, Non Distended and Normal Bowel Sounds; No Organomegaly
Rectal: Deferred by Provider
Musculoskeletal: No Clubbing, No Cyanosis and No Edema
Skin: No Rash
Neuro: Nonfocal/grossly intact
Laboratory Results
-
06/09/24 10:47
06/09/24 10:47
Laboratory Results
pH 7.36 (7.35-7.45) 06/09/24 10:49
pCO2 39 mmHg (35-48) 06/09/24 10:49
pO2 114 mmHg (83-108) H 06/09/24 10:49
HCO3 22.0 mmol/L (21-28) 06/09/24 10:49
Lactic Acid 5.5 mmol/L (0.7-2.0) H* 06/09/24 10:49
Total Bilirubin 1.8 mg/dl (0.2-1.3) H 06/09/24 10:47
AST 42 U/L (17-59) 06/09/24 10:47
ALT 41 U/L (0-50) 06/09/24 10:47
Alkaline Phosphatase 64 U/L (38-126) 06/09/24 10:47
Troponin I Cancelled 06/09/24 11:12
Data Reviewed
-
Lab Data: Labs Reviewed by me
Old Records: Reviewed
Impression/Plan
-
IMPRESSION:
PLAN:
# Sepsis (leukocytosis, tachycardia, hypotension ) secondary to right lower lobe pneumonia
-Chest x-ray shows new right lower lung opacity which could represent pneumonia, chronic interstitial changes in the right upper and lower lung
-Lactic acid 5.5
-IV fluids given with improvement in blood pressure,
-See individually below
# Acute on chronic hypoxemic respiratory failure secondary to right lower lobe pneumonia/IPF flare versus concern for underlying pulmonary hypertension/right heart failure
-Baseline 4 L, patient currently on high flow
-Cardiac BNP of 8000, so cautious with IV fluids
-Check echo
-See individually below
# Right lower lobe pneumonia
-COVID and influenza negative
-Check blood cultures
-Check sputum culture, strep antigen, Legionella, MRSA
-Gentle IV fluids
-Zosyn
# IPF flare
-Baseline 4 L oxygen
-Cardiac BNP of 8000
-Dexamethasone 4 mg every 12
-DuoNebs every 6 hours
-On Ofev
-On chronic 10 mg prednisone
-Pulmonary consulted
# Acute kidney injury
# Mild hyperkalemia
-IV fluids given, gentle IV fluids
# Nonischemic myocardial injury
-Patient has chest pain but think this is more likely due to pneumonia
-Troponin
-EKG shows sinus tachycardia, incomplete right bundle branch block,
-Trend troponins
History of crush injury of left chest status post left lower lobe pneumonectomy
COPD/bronchiectasis/restrictive lung disease
History of MARTÍN positive
Graves' disease/autoimmune thyroiditis status post iodine therapy
-Check TSH/free T4 and may need to adjust levothyroxine
-Continue levothyroxine
Hearing loss
DNR/DNI
DVT prophylaxis�heparin
Cardiac diet
[2024-06-09 12:40] LABS: TSH 2.18 uIU/ml (0.47-4.68)
--- NOTE | 2024-06-09 13:53 | CON.INTV ---
Consultation
Consultation Request
Date/Time Consultation Requested: 06/09/24
Date/Time Consultation Performed: 06/09/24
Performing Provider: Dr. Sanders/Dr. Ocampo
Medical History
-
Chief Complaint: shortness of breath
History of Present Illness:
74yo M with PMH significant for interstitial lung disease vs pulm fibrosis, restrictive lung disease, COPD, s/p pneumonectomy L lower lung who presented from home to ED 06/09/24 for worsening shortness of breath over past few days. History obtained
from patient, , chart review. SOB is chronic, but over past few days he has felt increasing dyspnea both at rest and with activity. Last night he felt like he 'couldn't breath' regardless of sitting vs lying down, and at home his SpO2 was in the
70s% with his baseline oxygen 4L/min NC. He also reports fatigue, weakness, poor oral intake, dehydration, occasional nonproductive cough. Reports occasional nausea, diarrhea associated with ofev, and some abdominal pain associated in certain
positions though none resting in bed now. He occasionally has chest pain and palpitations with exertion, which resolve at rest, and lightheadedness when standing. Denies fevers/chill, vomiting, pain/difficulty/coughing/choking with swallowing,
peripheral edema. Of note, he was worked up for lung transplant at [facility] but did not qualify. Incidental finding of CAD during workup. Initial vitals on arrival were BP 74/54, HR 122, SpO2 74%, afebrile. Labs were notable for wbc 16.3, lactic acid
5.5, bnp 8080, troponin 0.103, K 5.3, Cr 1.8. He received 3L IV NS, zosyn, steroids, and required oxygen 12L/min midflow NC. He was admitted to ICU and junior loan processor was consulted.
Past Medical History
Past Medical History: CAD, COPD, Hypercholesterolemia, Hyperthyroidism (h/o Graves disease s/p iodine ablation 02/27/24), Hypothyroidism (now on synthroid) and Other (interstitial lung disease, restrictive lung disease, COPD, bronchiectasis, h/o
crush injury of L chest s/p pneumonectomy of L lower lobe)
Past Surgical History: Other (s/p L lower lobe pneumectomy)
Social History
Tobacco: Former Smoker (quit cigarettes in 2017 (55 pack year); quit vaping in 11/2022)
Alcohol: None
Drug: None
Personal:
Living: With Family
Family History
Family History: Reviewed & Not Pertinent and Diabetes
Allergies / Home Medications
Allergies
Allergy/AdvReac Type Severity Reaction Status Date / Time
No Known Allergies Allergy Verified 06/09/24 10:31
Home Medications
�Medication �Instructions �Recorded �Confirmed �Last Taken �Type
calcium carbonate 500 mg PO DAILY 05/23/24 06/09/24 06/08/24 History
cholecalciferol (vitamin D3) 50 50 mcg PO DAILY 05/23/24 06/09/24 06/08/24 History
mcg (2,000 unit) tablet (Vitamin
D3)
fexofenadine 180 mg tablet 180 mg PO DAILY 05/23/24 06/09/24 06/08/24 History
levothyroxine 112 mcg tablet 112 mcg PO DAILY 05/23/24 06/09/24 06/08/24 History
nintedanib 100 mg capsule (Ofev) 100 mg PO Q12H 05/23/24 06/09/24 06/08/24 History
ondansetron 4 mg disintegrating 4 mg PO Q6HPRN PRN nausea 05/23/24 06/09/24 05/23/24 07:20 History
tablet
prednisone 10 mg tablet 10 mg PO DAILY 05/23/24 06/09/24 06/08/24 History
cyanocobalamin (vitamin B-12) 1,000 mcg PO DAILY 06/09/24 06/09/24 06/08/24 History
1,000 mcg tablet
ferrous sulfate 325 mg (65 mg 325 mg PO MOWEFR 06/09/24 06/09/24 Unknown History
iron) tablet
magnesium oxide 400 mg PO DAILY 06/09/24 06/09/24 06/08/24 History
omega 5-qdu-nie-fish oil 1,000 mg 2 cap PO DAILY 06/09/24 06/09/24 06/08/24 History
(120 mg-180 mg) capsule (Fish Oil)
therapeutic multivitamin 1 tab PO DAILY 06/09/24 06/09/24 06/08/24 History
Review of Systems
-
History Source: Patient
Constitutional: Fever (negative), Weight Gain (negative), Weight Loss (negative), Fatigue and Chills (negative)
EENT: Other (dry mouth)
Respiratory: Cough (occasional), Hemoptysis (negative) and Trouble Breathing (shortness of breath, increased oxygen requirement)
Cardiac: Chest Pain (intermittent pain while moving) and Palpitations (occasionally feels elevated HR with exertion, resolves at rest)
Abdomen/GI: Abdominal Pain (intermittent abdominal pain associated with certain positions, none at rest), Nausea, Vomiting (negative), Diarrhea (occasional loose stools in AM), Bloody Stools (negative), Black Stools (negative), Anorexia (poor
appetite for past few days) and Other (no pain/difficulty/choking/coughing with swallowing)
: No Symptoms
Musculoskeletal: No Symptoms
Skin: No Symptoms
Neuro: No Symptoms and Other (lightheadedness with standing)
Endocrine: Other (complains of thyroid imbalance, fatigue, hypotension)
Hematologic/Lymphatic: No Symptoms
Vitals / Labs / Diagnostic Testing
Vital Signs
Pulse Resp BP Pulse Ox
101 20 94/70 97
06/09/24 13:15 06/09/24 13:15 06/09/24 13:15 06/09/24 13:15
Lab Data
06/09/24 10:47
06/09/24 10:47
Laboratory Results
06/09/24
10:49
pH 7.36
pCO2 39
pO2 114 H
HCO3 22.0
O2 Delivery Level
Microbiology
06/09/24 10:59 Nasal Swab Influenza Types A & B (ADILENE) - Final
Negative for Influenza A & B, NAAT
Negative results must be combined with clinical observations
and patient history.
Nucleic Acid Amplification test (NAAT)performed on the
[employer] platform.
Diagnostic Testing:
Physical Exam
-
HEENT: Normocephalic, Anicteric and Moist Mucous Membranes
Cardiovascular: S1/S2, Regular Rhythm, Murmur (negative), Peripheral Edema (negative), Calf Tenderness (negative) and JVD (negative)
Respiratory: Other (diffuse crackles throughout, decreased breath sounds left lower lung) and Other (tachypnea, increased respiratory effort, 12L midflow NC)
GI: Soft, Non Distended, Non Tender and Normal Bowel Sounds
Neurology: Awake, Alert, Oriented and AO x 3
Skin: Warm, Dry and Good Color
General: Pain (negative), Fever (negative), Chills (negative), Sweats (negative) and Poor Appetite
Assessment
-
74yo M with PMH significant for interstitial lung disease vs pulm fibrosis, restrictive lung disease, COPD, s/p pneumonectomy L lower lobe who presented from home to ED 06/09/24 for acute on chronic dyspnea and increased oxygen requirements. Also
reports fatigue, weakness, poor oral intake, dehydration, occasional nonproductive cough. Of note, he was worked up for lung transplant at [facility] but did not qualify. Incidental finding of CAD during workup. Initial vitals on arrival were BP 74/54, HR
122, SpO2 74%, afebrile. Labs were notable for wbc 16.3, lactic acid 5.5, bnp 8080, troponin 0.103, K 5.3, Cr 1.8. He received 3L IV NS, zosyn, steroids, and required oxygen 12L/min midflow NC. He was admitted to ICU and junior loan processor was consulted.
Impression:
Acute on chronic respiratory failure-- secondary to right lower lobe pneumonia though cannot rule out acute ILD flare, pulm htn/heart failure
Less likely PE given no signs/symptoms DVTs
Sepsis likely secondary to pneumonia-- presented with leukocytosis, hypotension, tachycardia
Pneumonia right lower lobe-- Chest xray on admission shows possible pneumonia vs progressive chronic ILD/PF changes
ILD flare
Nonischemic myocardial injury
BLANE-- Cr 1.8 on admission, baseline appears to be 1.3
Hyperkalemia
Leukocytosis
Lactic acidosis
Conditions prior to admission:
Interstitial lung disease vs pulmonary fibrosis; restrictive lung disease; COPD
Home supplemental O2 requirement of 4L/min NC
Unfortunately does not qualify for lung transplant
H/o chest injury s/p pneumonectomy L lower lobe
H/o tobacco use and vaping use
AMA positive, anti-Izquierdo/ribonucleoprot Ab positive-- follows with rheumatology
H/o Grave's disease/autoimmune thyroiditis-- s/p radioactive iodine ablation 02/2024
Iatrogenic hypothyroidism-- now on levothyroxine 112mcg, follows with endocrinology; TSH on admission wnl
CAD
Hypercholesterolemia
Hearing impairment
Plan:
Continue supplemental oxygen
Wean as tolerated back to home baseline
Continue IV dexamethasone 4mg q12h (started 06/09)
Takes PO prednisone 10mg daily at home
Continue zosyn (started 06/09)
MRSA screen pending-- will consider adding vanc if appropriate
Check chest CT when more stable
Follow lactic acid
Monitor temperature curve and wbc
Check echocardiogram
Serial troponin, EKGs
Continuous ecg monitoring
Continue gentle IV hydration
Repeat BMP today
Monitor electrolytes, supplement as needed
Consider stool tests if develops persistent diarrhea-- more likely side effect of medication than infectious etiology
Monitor blood sugars-- no history of diabetes, will reassess for insulin requirements prn
Continue home levothyroxine 112 mcg qd
Code status: DNR/DNI-- confirmed with patient on admission
VTE ppx: subq heparin 5000u q12h
He has advanced directive/living will at home, did not bring to hospital. If he needs a medical decision maker, it would be his Scarlett.

Chest xray 06/09/24:
Extremely low lung volumes.
Some chronic interstitial changes again seen, especially in the right upper lung and left lower lung.
New right lower lung opacity which could represent pneumonia.
--- NOTE | 2024-06-09 14:00 | PTCARENOTE ---
Received patient from ER. Applied tele monitor, patient is on 15L midflow nasal cannula saturating 92%. assessment to follow.
[2024-06-09 15:26] LABS: Troponin I 0.178 ng/ml
[2024-06-09 15:38] LABS: Lactic Acid 1.5 mmol/L (0.7-2.0)
[2024-06-09 16:27] LABS: Blood Urea Nitrogen 29 mg/dl (9-20); Calcium 7.7 mg/dl (8.4-10.2); Carbon Dioxide 25 mmol/L (22-30); Chloride 101 mmol/L (98-107); Estimated Creatinine Clearance 45 ml/min; Glucose 156 mg/dl (70-99); Potassium 4.9 mmol/L (3.5-5.1); Sodium 133 mmol/L (135-145); eGFR 52.74
--- NOTE | 2024-06-09 16:48 | W.PN.UPDATE ---
Update Note
Progress Note Update
Echocardiogram noted with RV dilatation, pressure overload.
Patient not on anticoagulation
Denies any leg swelling
Differential diagnosis includes RV dysfunction with ongoing hypoxemia, worsening interstitial lung disease versus thromboembolic disease.
Agree with obtaining CT angiogram.
Continue IV hydration his creatinine is back down to normal.
Discussed with patient and at the bedside.
[2024-06-09] MEDS: NOVOLOG FLEXPEN-LOW RESISTANCE SC (16:57)
--- NOTE | 2024-06-09 17:58 | PTCARENOTE ---
Addendum entered by Deb Robles RN 06/09/24 18:11:
wrong pt
Original Note:
AAOX 3
SR 70's trace edema BP stable
on High flow 45% /45L POX 95% Occasional cough non productive Denies pain left ribs . IS 1000
Abdomen soft non tender LBM 2 days ago . Appetite good tolerating current diet
Indwelling quevedo draining clear petra urine
skin intact
pt been encourage to OOB chair . pt refused three times . Education on importance of increase mobility provided
--- NOTE | 2024-06-09 18:07 | PTCARENOTE ---
Took patient to CT scan for CTA study
[2024-06-09] MEDS: HEPARIN 5000 UNITS SC (19:46)
[2024-06-09] MEDS: DECADRON 4 MG IV (19:46)
[2024-06-09 20:20] LABS: INR 1.14; PT 15.1 Sec (11.4-14.6)
[2024-06-09 20:21] LABS: APTT 31.5 Sec (23.4-35.0)
[2024-06-09 20:28] LABS: ALT (SGPT) 36 U/L (0-50); AST (SGOT) 40 U/L (17-59); Albumin 3.3 g/dl (3.5-5.0); Alkaline Phosphatase 44 U/L (38-126); Blood Urea Nitrogen 27 mg/dl (9-20); Calcium 8.2 mg/dl (8.4-10.2); Carbon Dioxide 26 mmol/L (22-30); Chloride 99 mmol/L (98-107); Estimated Creatinine Clearance 45 ml/min; Glucose 150 mg/dl (70-99); Magnesium 2.2 mg/dl (1.6-2.3); Phosphorus 3.1 mg/dl (2.5-4.5); Potassium 4.8 mmol/L (3.5-5.1); Sodium 133 mmol/L (135-145); Total Bilirubin 0.9 mg/dl (0.2-1.3); Total Protein 6.6 g/dl (6.3-8.2); eGFR 52.74
[2024-06-09 20:34] LABS: Troponin I 0.163 ng/ml
[2024-06-09 22:10] LABS: Glucose - Point of Care 135 mg/dl (70-99)
--- NOTE | 2024-06-09 22:10 | PTCARENOTE ---
hep 1100 units iv bolus followed by hep gtt at 1400 units started per order
[2024-06-09] MEDS: HEPARIN 25000 UNITS/250 ML IV (22:11)
[2024-06-09] MEDS: HEPARIN 1100 UNITS IV (22:13)
--- NOTE | 2024-06-09 23:00 | PTCARENOTE ---
Rec'd pt resting in bed, at bedside, denies pain, SR , bp stable, + pulses, o2 via mid flow at 15 liters, attempted to wean to 12 liters but sat dropped to 98, tachypneic, HEALY, occas cough, + bowel sounds, no bm, abd soft, voids in urinal
--- NOTE | 2024-06-09 23:49 | PTCARENOTE ---
sys reviewed, resting comf
[2024-06-10] VITALS (18 sets, daily range): BP systolic 92–113; BP diastolic 69–98; BMI 25.5
--- NOTE | 2024-06-10 04:03 | PTCARENOTE ---
sys reviewed, sats while sleeping are 98-99%, when uses urinal sats drop to high 80's
[2024-06-10 04:22] LABS: APTT 98.9 Sec (23.4-35.0)
[2024-06-10 04:37] LABS: Troponin I 0.131 ng/ml
[2024-06-10 04:40] LABS: % Immature Granulocytes 0.4 % (0-0.5); % Lymphocytes 4.5 % (20.5-51.1); % Monocytes 6.6 % (1.7-9.3); % Neutrophils 88.5 % (42.2-75.2); Absolute Lymphocytes 0.5 10^3/uL (1.2-3.4); Absolute Monocytes 0.7 10^3/uL (0.1-0.6); Absolute Neutrophils 8.9 10^3/uL (1.4-6.5); Hematocrit 34.2 % (39.0-52.0); Hemoglobin 11.2 g/dL (13.0-18.0); Mean Corp Hgb Conc. 32.7 g/dL (33.0-37.0); Mean Corpuscular Hgb 32.1 pg (27.0-31.0); Mean Platelet Volume 10.3 fL (7.4-10.4); Nucleated Red Blood Cells % 0 % (-); Platelet Count 145 10^3/uL (130-400); Red Blood Cell Count 3.49 10^6/uL (4.70-6.10); Red Cell Dist. Width 16.3 % (11.5-14.5)
[2024-06-10 04:41] LABS: ALT (SGPT) 39 U/L (0-50); AST (SGOT) 38 U/L (17-59); Albumin 3.2 g/dl (3.5-5.0); Alkaline Phosphatase 45 U/L (38-126); Blood Urea Nitrogen 26 mg/dl (9-20); Calcium 8.2 mg/dl (8.4-10.2); Carbon Dioxide 27 mmol/L (22-30); Chloride 103 mmol/L (98-107); Estimated Creatinine Clearance 52 ml/min; Glucose 149 mg/dl (70-99); Potassium 5.2 mmol/L (3.5-5.1); Sodium 137 mmol/L (135-145); Total Bilirubin 0.7 mg/dl (0.2-1.3); Total Protein 6.3 g/dl (6.3-8.2); eGFR > 60.00
[2024-06-10] MEDS: NSS 1000 IV (05:43)
[2024-06-10] MEDS: ZOSYN 50 IV ×3 (05:43→18:12)
[2024-06-10] MEDS: SYNTHROID 112 MCG PO (05:43)
--- NOTE | 2024-06-10 05:56 | PTCARENOTE ---
CHG bath done, linens changed, during care sat dropped to 77, tachypneic, recovered slowly
[2024-06-10 07:40] LABS: Glucose - Point of Care 127 mg/dl (70-99)
--- NOTE | 2024-06-10 07:49 | W.PN.INTV ---
Today's Communication / Plan
Recommendations
Continue Zosyn for now
MRSA screening
Sputum culture pending
Nebulizers as needed
Heparin drip for now, transition to oral anticoagulants later today or tomorrow
Continue oxygen supplementation
Continue IV corticosteroids for next 24 to 48 hours depending on progression.
Discontinue IV fluid after current bag.
Cont. OFEV
Assessment
-
74yo M with PMH significant for interstitial lung disease vs pulm fibrosis, restrictive lung disease, COPD, s/p pneumonectomy L lower lobe who presented from home to ED 06/09/24 for acute on chronic dyspnea and increased oxygen requirements. Also
reports fatigue, weakness, poor oral intake, dehydration, occasional nonproductive cough. Of note, he was worked up for lung transplant at [place] but did not qualify. Incidental finding of CAD during workup. Initial vitals on arrival were BP 74/54, HR
122, SpO2 74%, afebrile. Labs were notable for wbc 16.3, lactic acid 5.5, bnp 8080, troponin 0.103, K 5.3, Cr 1.8. He received 3L IV NS, zosyn, steroids, and required oxygen 12L/min midflow NC. He was admitted to ICU and mechatronics technologist was consulted.
Impression:
Acute on chronic respiratory failure-- secondary to right lower lobe pneumonia though cannot rule out acute ILD flare, pulm htn/heart failure.
CT chest 06/09/2024: Small peripheral right-sided pulmonary emboli. Extensive right-sided pneumonia on top of underlying interstitial lung disease/pulmonary fibrosis.
Sepsis likely secondary to pneumonia-- presented with leukocytosis, hypotension, tachycardia-improved
Pneumonia right lower lobe-- Chest xray on admission shows possible pneumonia vs progressive chronic ILD/PF changes
ILD flare, less likely based on CAT scan.
RV dysfunction: Likely due to worsening hypoxemia and interstitial lung disease
Small pulmonary embolism does not explain RV dysfunction.
Nonischemic myocardial injury
BLANE-- Cr 1.8 on admission, baseline appears to be 1.3
Hyperkalemia
Leukocytosis
Lactic acidosis
Conditions prior to admission:
Interstitial lung disease vs pulmonary fibrosis; restrictive lung disease; COPD
Home supplemental O2 requirement of 4L/min NC
Unfortunately does not qualify for lung transplant
H/o chest injury s/p pneumonectomy L lower lobe
H/o tobacco use and vaping use
AMA positive, anti-Izquierdo/ribonucleoprot Ab positive-- follows with rheumatology
H/o Grave's disease/autoimmune thyroiditis-- s/p radioactive iodine ablation 02/2024
Iatrogenic hypothyroidism-- now on levothyroxine 112mcg, follows with endocrinology; TSH on admission wnl
CAD
Hypercholesterolemia
Hearing impairment
Plan:
Clinical picture explained by right-sided pneumonia on top of underlying pulmonary fibrosis/ILD.
Based on CAT scan I do not see evidence of ILD flare.
Tiny right-sided pulmonary emboli does not explain RV dysfunction plan
RV dysfunction on echocardiogram is explained by hypoxemia and worsening restrictive lung defect during pneumonia on top of severe ILD/pulmonary fibrosis.
-
Afebrile/leukocytosis improved
Hemodynamically stable did not require vasopressors. Responded to IV fluid resuscitation
Creatinine down to 1.2, improved after IV fluids
Lactic acid has cleared
Continue gentle hydration for today patient did receive IV contrast 06/09/2024-will discontinue after current bag.
-
From the pulmonary perspective no indication for high-dose of steroids for ILD flare.
On a stress dose of steroid-he is chronically on low-dose prednisone.
Continue IV dexamethasone 4mg q12h (started 06/09) for now, also has severe pneumonia.
Takes PO prednisone 10mg daily at home
-
Microbiology so far negative: Negative influenza, negative COVID, negative Streptococcus and Legionella antibodies.
MRSA screening pending
Blood cultures pending
Continue Zosyn (started 06/09/2024) for now. So far he appears to be responding.
If MRSA screening positive may need to consider to add vancomycin.
Continue supplemental oxygen-currently on mid flow 15 L-baseline is 4 L nasal cannula. Pulse ox during my evaluation 95% with conversation
Wean as tolerated back to home baseline
Nebulizers as needed to aid secretion clearance
Continue OFEV.
-
Echocardiogram noted 06/09/2024: Normal LVEF. Dilated right ventricular with mildly reduced systolic function. Flattened septum in diastole consistent with RV volume overload. Moderate pulmonary hypertension. IVC is dilated and does not collapse.
Mild troponin leak secondary to RV strain.
Denies chest pain
Hold any diuresis.
-
Small peripheral right-sided pulmonary embolism: 06/10/2024 heparin drip for today.
Transition to oral anticoagulants tomorrow. Consider 3 months of anticoagulation
Tiny pulmonary embolism does not explain RV dysfunction.
-
Continue gentle IV hydration as above, received IV contrast as well as has chronic kidney disease. Creatinine is improved today.
Follow-up hyperkalemia.
Consider stool tests if develops persistent diarrhea-- more likely side effect of medication(OFEV) than infectious etiology
Monitor blood sugars-- no history of diabetes, will reassess for insulin requirements prn
Blood sugar target 140-180.
-
Continue home levothyroxine 112 mcg qd (TSH, T3 and T4 normal)
Code status: DNR/DNI-- confirmed with patient on admission
VTE ppx: subq heparin 5000u q12h
He has advanced directive/living will at home, did not bring to hospital. If he needs a medical decision maker, it would be his Scarlett.
-
Transfer to intermediate care unit
Pulmonary will follow

Chest xray 06/09/24:
Extremely low lung volumes.
Some chronic interstitial changes again seen, especially in the right upper lung and left lower lung.
New right lower lung opacity which could represent pneumonia.
Subjective Dataa
Subjective Data
Date of Service:
Date of Service: June 10, 2024
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
Subjective:
No new complaints
Continues to report shortness of breath with mild activity
No significant phlegm production
Denies hemoptysis
Denies chest
Review of Systems
Cardiopulmonary: Dyspnea, Dyspnea on Exertion and Cough
GI: Abdominal Pain (n)
Objective Data
Data Reviewed
Vital Signs / I&O / Oxygen:
Vital Signs
Temp Pulse Resp BP Pulse Ox
97.7 F 85 28 113/98 92
06/10/24 07:00 06/10/24 06:00 06/10/24 06:00 06/10/24 06:00 06/10/24 06:00
Intake and Output
06/09/24 06/10/24 06/11/24
06:59 06:59 06:59
Intake Total 2722 / 2722
Output Total 1700 / 1700
Balance 1022 / 1022
SaO2 92
Nasal Cannula flow liters per 15
minute
Physical Exam
General: Respiratory Distress (Mild with active)
HEENT: Normocephalic
Cardiovascular: S1-S2
Respiratory: Crackles
GI: Soft and Non Distended
Neurology: Awake, Alert, AO x 3 and No Motor Deficits
Skin: Warm
Labs/Micro/Reports
Lab Data
06/10/24 04:01
06/10/24 04:01
Laboratory Results
06/09/24 06/09/24 06/10/24
10:49 19:59 00:05
PT 15.1 H
INR 1.14
APTT 31.5 Cancelled
pH 7.36
pCO2 39
pO2 114 H
HCO3 22.0
O2 Delivery Level
06/10/24
04:01
PT
INR
APTT 98.9 H
pH
pCO2
pO2
HCO3
O2 Delivery Level
Microbiology
06/09/24 16:05 Urine Legionella Urinary Antigen - Final
Negative for Legionella pneumophila Serogroup 1 antigen.
A negative result does not rule out the possiblity of
Legionella infection due to other serogroups or species of
Legionella. Clinical correlation is recommended.
06/09/24 16:05 Urine Streptococcus pneumoniae Antigen (M - Final
Negative for Streptococcus pneumoniae antigen.
A negative result does not exclude infection with
Streptococcus pneumoniae. Clinical correlation is
recommended.
06/09/24 10:59 Nasal Swab Influenza Types A & B (ADILENE) - Final
Negative for Influenza A & B, NAAT
Negative results must be combined with clinical observations
and patient history.
Nucleic Acid Amplification test (NAAT)performed on the
[employer] platform.
[2024-06-10] MEDS: CLARITIN 10 MG PO (08:27)
[2024-06-10] MEDS: DECADRON 4 MG IV ×2 (08:27→19:58)
[2024-06-10] MEDS: NOVOLOG FLEXPEN-LOW RESISTANCE SC ×3 (08:27→18:12)
[2024-06-10] MEDS: VITAMIN B-12 1000 MCG PO (08:28)
[2024-06-10] MEDS: MAG-TAB SR 84 MG PO (08:28)
[2024-06-10] MEDS: VITAMIN D3 (cholecalciferol) 50 MCG PO (08:28)
[2024-06-10] MEDS: OSCAL CAL 500 500 MG PO (08:28)
[2024-06-10] MEDS: THERAGRAN 1 TABLET PO (08:28)
[2024-06-10 08:36] LABS: Glycohemoglobin (HgbA1c) 6.1 % (4.0-5.6)
--- NOTE | 2024-06-10 09:06 | W.PN.HOSP.TC ---
Today's Communication/Plan
-
see bold
Assessment / Plan
Assessment / Plan
HPI: 74-year-old male past medical history of pulmonary fibrosis on 4 L oxygen, crush injury of left chest status post pneumonectomy of left lower lung, COPD, bronchiectasis, restrictive lung disease, MARTÍN positive, Graves' disease/autoimmune
thyroiditis status post iodine earlier this year, hypothyroidism, hearing loss, presenting with severely worsening shortness of breath over the past few days with minimal cough. He had chills but denies fever. He has been having chest pain that is
worse with breathing. He did have some diarrhea and abdominal discomfort yesterday and an episode of loose stools this morning.
He was hypoxemic on 4 L of oxygen down to 70s so he was brought to the hospital.
# Sepsis (leukocytosis, tachycardia, hypotension ) secondary to right lower lobe pneumonia
Chest x-ray shows new right lower lung opacity which could represent pneumonia, chronic interstitial changes in the right upper and lower lung
Flu/COVID-negative, urine Legionella antigen negative, strep antigen negative
Continue IV Zosyn day 2, follow-up sputum and blood cultures, trend fever and white count
# Acute on chronic hypoxemic respiratory failure secondary to PE/pneumonia/IPF flare versus concern for underlying pulmonary hypertension/right heart failure
Appreciate pulm input, RV dysfunction on echo is explained by hypoxemia and worsening restrictive lung defect during pneumonia on top of severe ILD/pulmonary fibrosis.
Currently requiring 15 L mid flow, down from high flow
Wean oxygen as tolerated. He is on 4 L at baseline
# Interstitial pulmonary fibrosis exacerbation
Appreciate pulm input, continue IV steroids, bronchodilators
#Acute small peripheral right sided PE
Continue heparin drip for now, plan to change to oral anticoagulant tomorrow
# Acute kidney injury
# Mild hyperkalemia
BLANE resolved with IV fluids
Potassium 5.2 today, continue to trend
# Nonischemic myocardial injury
Patient has chest pain but think this is more likely due to pneumonia
EKG shows sinus tachycardia, incomplete right bundle branch block,
History of crush injury of left chest status post left lower lobe pneumonectomy
COPD/bronchiectasis/restrictive lung disease
History of MARTÍN positive
Graves' disease/autoimmune thyroiditis status post iodine therapy
-Continue levothyroxine
Hearing loss
DNR/DNI
DVT prophylaxis�heparin drip
Cardiac diet
Total time spent to see the patient on the floor, examine the patient, review data and lab results, discuss treatment plan with patient, nursing staff around 53 minutes.
Physical Exam
General: Appears to not feel well, no acute distress
HEENT: Normocephalic, Atraumatic, EOMI, MMM
Respiratory: Bibasilar crackles extending to the mid lung alfred
Cardiac: Normal S1/S2, Regular Rate and Rhythm
GI: Soft, Nontender, Nondistended, Normal Bowel Sounds
Extremities: No Clubbing, Cyanosis, or Edema
Neuro: Nonfocal/Grossly Intact
Psych: Calm, Cooperative
Derm: No Visible lesions
Anticipated Discharge: > 48 hours
Subjective/Interval History
-
Date of Service: June 10, 2024
Patient reports shortness of breath is mildly improved. He continues to have a cough, dry. Reports feeling labored with his breathing. No fever, no vomiting.
Objective Data
-
Labs:
Laboratory Results
06/10/24 06/10/24 06/10/24
00:05 04:01 10:00
WBC Cancelled 10.0
Hgb Cancelled 11.2 L
Hct Cancelled 34.2 L
Plt Count Cancelled 145 D
APTT Cancelled 98.9 H Pending
Sodium 137
Potassium 5.2 H
Chloride 103
Carbon Dioxide 27
BUN 26 H
Creatinine 1.2
Glucose 149 H
Calcium 8.2 L
Total Bilirubin 0.7
AST 38
ALT 39
Alkaline Phosphatase 45
Vital Signs:
Vital Signs
Temp Pulse Resp BP Pulse Ox
97.7 F 83 19 101/76 97
06/10/24 07:00 06/10/24 09:00 06/10/24 09:00 06/10/24 09:00 06/10/24 09:00
I&O
06/09/24 06/10/24 06/11/24
06:59 06:59 06:59
Intake Total 2722 / 2806 252 / 252
Output Total 1700 / 1700
Balance 1022 / 1106 252 / 252
[2024-06-10 11:28] LABS: APTT 114.3 Sec (23.4-35.0)
[2024-06-10 11:53] LABS: Glucose - Point of Care 193 mg/dl (70-99)
--- NOTE | 2024-06-10 14:14 | CM ---
CM following re: discharge planning.
Reviewed pt's chart, met with pt.
Pt is a 74 year old male, admitted with primary dx of PNA.
Pt reports he lives with spouse 2SH, 3 steps to enter, has 3 supportive children. Pt described himself as independent in all areas [employer]ER, does not use any assistive devices, has home O2 - 4L NC at baseline. Pt reports he is very weak now.
PT and OT will evaluate the pt to determine a level of care at discharge.
PCP: Genaro Boo
Pharmacy: [facility]
D/C plan: home with anticipated no needs.
CM will follow with discharge plan updates as hospitalization progresses
--- NOTE | 2024-06-10 15:11 | PTCARENOTE ---
Pt AAOx3. SpO2 92-96% on 15L midflow NC at rest. Desaturates to 70s with movement in bed and using urinal. Pt given 100% NRB mask and SpO2 improves to 90% with in 2 min. Pt agreeable to ring for RN prior to major repositioning and urinal use for
additional O2 to prevent HEALY and drop in Os sat. Appetite remains poor. SpO2 noted to be 87-87% at times while eating. Remains on heparin gtt per protocol. Family at bedside.
[2024-06-10] MEDS: HEPARIN 25000 UNITS/250 ML IV (16:12)
[2024-06-10 18:03] LABS: Glucose - Point of Care 140 mg/dl (70-99)
[2024-06-10 19:01] LABS: APTT 70.5 Sec (23.4-35.0)
[2024-06-10] MEDS: HEPARIN 3000 UNITS IV (19:14)
[2024-06-10] MEDS: NSS IV (19:53)
--- NOTE | 2024-06-10 20:00 | PTCARENOTE ---
Addendum entered by Edith Barahona RN 06/11/24 02:22:
Vital signs captured from 06/10 16:00 to now.
Original Note:
Received pt from previous shift. Systems reviewed, see flowsheets. Pt SaO2 93-96% on 15L MFNC, but desats to the 70s with movement. Recovers quickly with NRBR PRN. Appears tachypnic, dyspnic with talking. Pt reports nasal congestion and is asking
for a decongestant. House provider, Alicia Vizcaino, notified, awaiting orders. NSR on heart montior. L wrist PIV with heparin gtt infusing at 1400units/hr along with NSS at 70mL/hr. Next PTT at 01:00. Will continue to monitor.
[2024-06-10] MEDS: MUCINEX 600 MG PO (20:46)
[2024-06-10 21:59] LABS: Glucose - Point of Care 150 mg/dl (70-99)
[2024-06-11] VITALS (12 sets, daily range): BP systolic 101–133; BP diastolic 72–89; BMI 25.4
[2024-06-11] MEDS: ZOSYN 50 IV ×5 (00:12→23:48)
[2024-06-11 01:15] LABS: APTT 102.7 Sec (23.4-35.0)
--- NOTE | 2024-06-11 02:42 | PTCARENOTE ---
Rec'd pt from previous RN, pt sleeping, NRB mask on sat 98
--- NOTE | 2024-06-11 04:00 | PTCARENOTE ---
Lungs coarse, crackles in bases, desats to 80's when using urinal, at times uese mid flow & NRB
[2024-06-11] MEDS: SYNTHROID 112 MCG PO (04:14)
[2024-06-11] MEDS: TYLENOL 650 MG PO (06:27)
--- NOTE | 2024-06-11 06:29 | PTCARENOTE ---
650mg tylenol po given for pain w/ insp
[2024-06-11 06:57] LABS: Hematocrit 34.9 % (39.0-52.0); Hemoglobin 11.2 g/dL (13.0-18.0); Mean Corp Hgb Conc. 32.1 g/dL (33.0-37.0); Mean Corpuscular Hgb 31.9 pg (27.0-31.0); Mean Corpuscular Volume 99.4 fL (80.0-94.0); Platelet Count 142 10^3/uL (130-400); Red Blood Cell Count 3.51 10^6/uL (4.70-6.10); Red Cell Dist. Width 16.3 % (11.5-14.5); White Blood Cell Count 10.3 10^3/uL (4.8-10.8)
[2024-06-11 07:05] LABS: APTT 120.4 Sec (23.4-35.0)
[2024-06-11 07:37] LABS: Blood Urea Nitrogen 23 mg/dl (9-20); Calcium 8.5 mg/dl (8.4-10.2); Carbon Dioxide 32 mmol/L (22-30); Chloride 101 mmol/L (98-107); Estimated Creatinine Clearance 57 ml/min; Glucose 147 mg/dl (70-99); Magnesium 2.2 mg/dl (1.6-2.3); Potassium 4.7 mmol/L (3.5-5.1); Sodium 138 mmol/L (135-145); eGFR > 60.00
--- NOTE | 2024-06-11 08:13 | W.PN.HOSP.TC ---
Today's Communication/Plan
-
see bold
Assessment / Plan
Assessment / Plan
HPI: 74-year-old male past medical history of pulmonary fibrosis on 4 L oxygen, crush injury of left chest status post pneumonectomy of left lower lung, COPD, bronchiectasis, restrictive lung disease, MARTÍN positive, Graves' disease/autoimmune
thyroiditis status post iodine earlier this year, hypothyroidism, hearing loss, presenting with severely worsening shortness of breath over the past few days with minimal cough. He had chills but denies fever. He has been having chest pain that is
worse with breathing. He did have some diarrhea and abdominal discomfort yesterday and an episode of loose stools this morning.
He was hypoxemic on 4 L of oxygen down to 70s so he was brought to the hospital.
# Sepsis (leukocytosis, tachycardia, hypotension ) secondary to right lower lobe pneumonia
Chest x-ray shows new right lower lung opacity which could represent pneumonia, chronic interstitial changes in the right upper and lower lung
Flu/COVID-negative, urine Legionella antigen negative, strep antigen negative
Continue IV Zosyn day 3, started on azithromycin day 1
Trend fever and white count
# Acute on chronic hypoxemic respiratory failure secondary to PE/pneumonia/IPF flare versus concern for underlying pulmonary hypertension/right heart failure
Appreciate pulm input, RV dysfunction on echo is explained by hypoxemia and worsening restrictive lung defect during pneumonia on top of severe ILD/pulmonary fibrosis.
Currently requiring 15 L high flow
Wean oxygen as tolerated. He is on 4 L at baseline
# Interstitial pulmonary fibrosis exacerbation
Appreciate pulm input, continue IV steroids, bronchodilators
#Acute small peripheral right sided PE
Change IV heparin drip to Eliquis
#Epistaxis
Humidify oxygen, start [place], start Bactroban to the nares
# Acute kidney injury
# Mild hyperkalemia
BLANE resolved with IV fluids
Hyperkalemia resolved
# Nonischemic myocardial injury
Patient has chest pain but think this is more likely due to pneumonia
EKG shows sinus tachycardia, incomplete right bundle branch block,
History of crush injury of left chest status post left lower lobe pneumonectomy
COPD/bronchiectasis/restrictive lung disease
History of MARTÍN positive
Graves' disease/autoimmune thyroiditis status post iodine therapy
-Continue levothyroxine
Hearing loss
DVT prophylaxis�Eliquis
DNR
Total time spent to see the patient on the floor, examine the patient, review data and lab results, discuss treatment plan with patient, nursing staff around 51 minutes.
Physical Exam
General: Appears to not feel well, no acute distress
HEENT: Normocephalic, Atraumatic, EOMI, MMM
Respiratory: Bibasilar crackles extending to the mid lung alfred
Cardiac: Normal S1/S2, Regular Rate and Rhythm
GI: Soft, Nontender, Nondistended, Normal Bowel Sounds
Extremities: No Clubbing, Cyanosis, or Edema
Neuro: Nonfocal/Grossly Intact
Psych: Calm, Cooperative
Derm: No Visible lesions
Anticipated Discharge: > 48 hours
Subjective/Interval History
-
Date of Service: June 11, 2024
Patient continues to cough, and feels short of breath. He is having epistaxis. No fever, no vomiting.
Objective Data
-
Labs:
Laboratory Results
06/11/24 06/11/24 06/11/24
00:55 06:23 13:00
WBC 10.3
Hgb 11.2 L
Hct 34.9 L
Plt Count 142
APTT 102.7 H 120.4 H Pending
Sodium 138
Potassium 4.7
Chloride 101
Carbon Dioxide 32 H
BUN 23 H
Creatinine 1.1
Glucose 147 H
Calcium 8.5
Vital Signs:
Vital Signs
Temp Pulse Resp BP Pulse Ox
97.5 F 87 22 118/72 90
06/11/24 07:00 06/11/24 06:00 06/11/24 06:00 06/11/24 06:00 06/11/24 06:00
I&O
06/10/24 06/11/24 06/12/24
06:59 06:59 06:59
Intake Total 2722 / 2806 1760 / 1760
Output Total 1700 / 1700 1725 / 1725
Balance 1022 / 1106 35 / 35
[2024-06-11 08:25] LABS: Glucose - Point of Care 140 mg/dl (70-99)
[2024-06-11] MEDS: NOVOLOG FLEXPEN-LOW RESISTANCE SC (08:30)
[2024-06-11] MEDS: MAG-TAB SR 84 MG PO (09:07)
[2024-06-11] MEDS: CLARITIN 10 MG PO (09:07)
[2024-06-11] MEDS: VITAMIN B-12 1000 MCG PO (09:07)
[2024-06-11] MEDS: DECADRON 4 MG IV ×2 (09:07→19:37)
[2024-06-11] MEDS: THERAGRAN 1 TABLET PO (09:07)
[2024-06-11] MEDS: OSCAL CAL 500 500 MG PO (09:07)
[2024-06-11] MEDS: MUCINEX 600 MG PO ×2 (09:07→19:36)
[2024-06-11] MEDS: VITAMIN D3 (cholecalciferol) 50 MCG PO (09:07)
[2024-06-11] MEDS: ELIQUIS 10 MG PO ×2 (09:10→19:36)
[2024-06-11] MEDS: DUONEB 3 ML INH (09:21)
--- NOTE | 2024-06-11 09:37 | PTCARENOTE ---
Pt noted to have worsening SOB. Using 100% NRB more frequently over 15L midflow NC. Pt reporting nasal congestion. MD notified and nasal spray requested. Pt placed back on high flow NC 50L 100%. Pt now having productive cough. Sputum blood
tinged, sample send to lab. Crackles noted bilaterally. Portable CXR done. Pt reports back pain not relieved by tylenol. New order received for oxycodone.
--- NOTE | 2024-06-11 09:46 | CM ---
Addendum entered by Meche Rodriges 06/11/24 16:38:
Patient provided [facility] ID# [id number]; customer services # [phone]. Unable to obtain information due to holiday.
Original Note:
consult received for [facility] pricing. [facility] is closed. CM requested insurance card to reach out to insurance re pricing from Patient.
--- NOTE | 2024-06-11 09:50 | W.PN.INTV ---
Today's Communication / Plan
Recommendations
Continue Zosyn
Will add azithromycin orally
Continue Eliquis
Nasal humidification for epistaxis, follow closely.
Oxygen supplementation, high flow/nonrebreather mask as needed
Continue to follow final sputum culture
Continue IV dexamethasone without change
Prognosis is guarded
Assessment
-
74yo M with PMH significant for interstitial lung disease vs pulm fibrosis, restrictive lung disease, COPD, s/p pneumonectomy L lower lobe who presented from home to ED 06/09/24 for acute on chronic dyspnea and increased oxygen requirements. Also
reports fatigue, weakness, poor oral intake, dehydration, occasional nonproductive cough. Of note, he was worked up for lung transplant at [place] but did not qualify. Incidental finding of CAD during workup. Initial vitals on arrival were BP 74/54, HR
122, SpO2 74%, afebrile. Labs were notable for wbc 16.3, lactic acid 5.5, bnp 8080, troponin 0.103, K 5.3, Cr 1.8. He received 3L IV NS, zosyn, steroids, and required oxygen 12L/min midflow NC. He was admitted to ICU and sewer and inspector was consulted.
Impression:
Acute on chronic respiratory failure-- secondary to right lower lobe pneumonia though cannot rule out acute ILD flare, pulm htn/heart failure.
CT chest 06/09/2024: Small peripheral right-sided pulmonary emboli. Extensive right-sided pneumonia on top of underlying interstitial lung disease/pulmonary fibrosis.
Sepsis likely secondary to pneumonia-- presented with leukocytosis, hypotension, tachycardia-improved
Pneumonia right lower lobe-- Chest xray on admission shows possible pneumonia vs progressive chronic ILD/PF changes
ILD flare, less likely based on CAT scan.
RV dysfunction: Likely due to worsening hypoxemia and interstitial lung disease
Small pulmonary embolism does not explain RV dysfunction.
Nonischemic myocardial injury
BLANE-- Cr 1.8 on admission, baseline appears to be 1.3
Hyperkalemia
Leukocytosis
Lactic acidosis
Conditions prior to admission:
Interstitial lung disease vs pulmonary fibrosis; restrictive lung disease; COPD
Home supplemental O2 requirement of 4L/min NC
Unfortunately does not qualify for lung transplant
H/o chest injury s/p pneumonectomy L lower lobe
H/o tobacco use and vaping use
AMA positive, anti-Izquierdo/ribonucleoprot Ab positive-- follows with rheumatology
H/o Grave's disease/autoimmune thyroiditis-- s/p radioactive iodine ablation 02/2024
Iatrogenic hypothyroidism-- now on levothyroxine 112mcg, follows with endocrinology; TSH on admission wnl
CAD
Hypercholesterolemia
Hearing impairment
Plan:
Clinical picture explained by right-sided pneumonia on top of underlying pulmonary fibrosis/ILD.
Based on CAT scan I do not see evidence of ILD flare.
Tiny right-sided pulmonary emboli does not explain RV dysfunction plan
RV dysfunction on echocardiogram is explained by hypoxemia and worsening restrictive lung defect during pneumonia on top of severe ILD/pulmonary fibrosis.
-
Afebrile/leukocytosis improved
Hemodynamically stable did not require vasopressors. Responded to IV fluid resuscitation
Creatinine down to 1.2, improved after IV fluids
Lactic acid has cleared
No further IV fluids needed.
-
From the pulmonary perspective no indication for high-dose of steroids for ILD flare.
On a stress dose of steroid-he is chronically on low-dose prednisone.
Continue IV dexamethasone 4mg q12h (started 06/09) for now, also has severe pneumonia. Continue without change for today.
Takes PO prednisone 10mg daily at home
-
Microbiology so far negative: Negative influenza, negative COVID, negative Streptococcus and Legionella antibodies.
MRSA screening negative
Blood cultures negative
Sputum culture pending.
Continue Zosyn (started 06/09/2024) for now.
Will add azithromcyn, atypical coverage. 06/11/2023
Oxygenation has not improved-continues to require high concentration of supplemental oxygen.
Repeat chest x-ray 06/11/2024: Continues to demonstrate asymmetrical infiltrates worsening on the right. No pneumothorax. Consistent with severe pneumonia on the right.
Continue supplemental oxygen-currently on mid flow 15 L-baseline is 4 L nasal cannula.
High flow oxygen and nonrebreather mask. Will be necessary to maintain pulse ox above 90%.
Wean as tolerated back to home baseline
Nebulizers as needed to aid secretion clearance
Continue OFEV.
-
Mild epistaxis-in the setting of oxygen supplementation and anticoagulant
Saline spray for humidification
-
Echocardiogram noted 06/09/2024: Normal LVEF. Dilated right ventricular with mildly reduced systolic function. Flattened septum in diastole consistent with RV volume overload. Moderate pulmonary hypertension. IVC is dilated and does not collapse.
Mild troponin leak secondary to RV strain.
Denies chest pain
Hold any diuresis.
-
Small peripheral right-sided pulmonary embolism: Status post 24 hours of heparin drip.
Oral anticoagulation started, would complete 3 months.
Tiny pulmonary embolism does not explain RV dysfunction.
-
Consider stool tests if develops persistent diarrhea-- more likely side effect of medication(OFEV) than infectious etiology-benign abdominal exam.
Continue to observe.
Monitor blood sugars-- no history of diabetes, will reassess for insulin requirements prn
Blood sugar target 140-180.
-
Continue home levothyroxine 112 mcg qd (TSH, T3 and T4 normal)
Code status: DNR/DNI-- confirmed with patient on admission
VTE ppx: Anticoagulation
DNR status
-
Pulmonary will follow-respiratory status remained tenuous.

Chest xray 06/09/24:
Extremely low lung volumes.
Some chronic interstitial changes again seen, especially in the right upper lung and left lower lung.
New right lower lung opacity which could represent pneumonia.
Subjective Dataa
Subjective Data
Date of Service:
Date of Service: June 11, 2024
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
Subjective:
Continue to high oxygen concentrations, oxygen saturation with activity
Denies hemoptysis or significant phlegm production
this morning with mild epistaxis
Continues to report shortness of breath with activity, not much change compared to yesterday.
No significant phlegm production
Review of Systems
General: Fever (n)
Cardiopulmonary: Dyspnea on Exertion and Cough
GI: Abdominal Pain (n) and Nausea (n)
Neuro: Headache (n)
Objective Data
Data Reviewed
Vital Signs / I&O / Oxygen:
Vital Signs
Temp Pulse Resp BP Pulse Ox
97.5 F 83 32 121/81 96
06/11/24 07:00 06/11/24 09:25 06/11/24 09:25 06/11/24 08:00 06/11/24 09:42
Intake and Output
06/10/24 06/11/24 06/12/24
06:59 06:59 06:59
Intake Total 2722 / 2806 1760 / 1760
Output Total 1700 / 1700 1725 / 1725
Balance 1022 / 1106 35 / 35
SaO2 96
Nasal Cannula flow liters per 50
minute
Physical Exam
General: Respiratory Distress (Mild with active)
HEENT: Normocephalic
Cardiovascular: S1-S2
Respiratory: Crackles
GI: Soft and Non Distended
Neurology: Awake, Alert, AO x 3 and No Motor Deficits
Skin: Warm
Labs/Micro/Reports
Lab Data
06/11/24 06:23
06/11/24 06:23
Laboratory Results
06/10/24 06/10/24 06/11/24
10:49 18:13 00:55
APTT 114.3 H 70.5 H 102.7 H
06/11/24 06/11/24
06:23 13:00
APTT 120.4 H Cancelled
Microbiology
06/09/24 15:41 Nose MRSA Screen - Final
No Methicillin Resistant Staphylococcus aureus isolated.
06/09/24 10:49 Blood/Venous Blood Culture - Preliminary
No Growth in 24 hours- Final report to follow
06/09/24 10:49 Blood/Venous Blood Culture - Preliminary
No Growth in 24 hours- Final report to follow
06/09/24 16:05 Urine Legionella Urinary Antigen - Final
Negative for Legionella pneumophila Serogroup 1 antigen.
A negative result does not rule out the possiblity of
Legionella infection due to other serogroups or species of
Legionella. Clinical correlation is recommended.
06/09/24 16:05 Urine Streptococcus pneumoniae Antigen (M - Final
Negative for Streptococcus pneumoniae antigen.
A negative result does not exclude infection with
Streptococcus pneumoniae. Clinical correlation is
recommended.
06/09/24 10:59 Nasal Swab Influenza Types A & B (ADILENE) - Final
Negative for Influenza A & B, NAAT
Negative results must be combined with clinical observations
and patient history.
Nucleic Acid Amplification test (NAAT)performed on the
[employer] platform.
[2024-06-11] MEDS: FEOSOL 325 MG PO (10:01)
[2024-06-11] MEDS: ROXICODONE 5 MG PO (10:01)
[2024-06-11] MEDS: LIDOCAINE 4% PATCH 1 PATCH TOPICAL (10:01)
[2024-06-11] MEDS: OCEAN, SALINE MIST 2 SPRAYS NASAL ×4 (11:41→22:02)
[2024-06-11] MEDS: BACTROBAN 2% OINTMENT 1 APPLIC NASAL ×2 (11:41→19:37)
[2024-06-11] MEDS: MIRALAX 17 GRAMS PO (11:41)
[2024-06-11] MEDS: SENOKOT-S 2 TABLET PO ×2 (11:42→19:36)
[2024-06-11] MEDS: ZITHROMAX 500 MG PO (11:42)
[2024-06-11] MEDS: NOVOLOG FLEXPEN-LOW RESISTANCE 1 UNITS SC (12:53)
[2024-06-11 13:04] LABS: Glucose - Point of Care 179 mg/dl (70-99)
[2024-06-11 17:15] LABS: Glucose - Point of Care 203 mg/dl (70-99)
[2024-06-11] MEDS: NOVOLOG FLEXPEN-LOW RESISTANCE 300 UNITS SC (17:49)
[2024-06-11] MEDS: ROXICODONE 10 MG PO (19:36)
--- NOTE | 2024-06-11 21:17 | PTCARENOTE ---
Handoff report received from off going RN. Patient received in bed on high flow oxygen at 50 L/100%. SpO2 at 95%. Plan of care for the shift reviewed with the patient. Pt's sinus rhythm on the monitor. Afebrile. Palpable pulses. Skin is warm and
dry. Crackles/coarse breath sounds throughout. HEALY. SpO2 dropped to 82% with activity. IS max of 500 mL x 3 attempts. +BS. Pt utilizes the urinal to void. PRN Roxicodone for 7/10 back pain. Safety measures maintained. Call madrigal is within reach.
[2024-06-11 22:44] LABS: Glucose - Point of Care 130 mg/dl (70-99)
[2024-06-12] VITALS (20 sets, daily range): BP systolic 87–147; BP diastolic 59–129; BMI 25.4
--- NOTE | 2024-06-12 00:37 | PTCARENOTE ---
Patient reassessed. Remains on high flow o2 50L & 100%. nsr. No changes from previous assessment.
[2024-06-12] MEDS: NSS (PRESERVATIVE FREE) 0.5 ML IV (04:06)
[2024-06-12] MEDS: ATIVAN 1 MG IV (04:06)
[2024-06-12 04:36] LABS: Hematocrit 37.6 % (39.0-52.0); Mean Corp Hgb Conc. 31.9 g/dL (33.0-37.0); Mean Corpuscular Hgb 32.3 pg (27.0-31.0); Mean Corpuscular Volume 101.1 fL (80.0-94.0); Mean Platelet Volume 10.2 fL (7.4-10.4); Platelet Count 160 10^3/uL (130-400); Red Blood Cell Count 3.72 10^6/uL (4.70-6.10); Red Cell Dist. Width 15.9 % (11.5-14.5)
[2024-06-12 04:56] LABS: Blood Urea Nitrogen 27 mg/dl (9-20); Calcium 8.7 mg/dl (8.4-10.2); Carbon Dioxide 36 mmol/L (22-30); Chloride 96 mmol/L (98-107); Estimated Creatinine Clearance 52 ml/min; Glucose 162 mg/dl (70-99); Potassium 4.9 mmol/L (3.5-5.1); Sodium 138 mmol/L (135-145); eGFR > 60.00
[2024-06-12] MEDS: ZOSYN 50 IV ×4 (05:54→23:36)
[2024-06-12] MEDS: SYNTHROID 112 MCG PO (05:54)
--- NOTE | 2024-06-12 06:06 | PTCARENOTE ---
[id number]: Patient noted to be tachypneic with RR 30s, and in a panic to get oob. The patient verbalized needing to get up and swinging his legs over the bed. Asked the patient if he needed to void and he nodded but remained in a frantic state. SpO2
76%. Patient remained on high flow o2 50L and 100%. Nonrebreather placed over the high flow. SpO2 78%. Yanni Brandt. Shine Donald, MANAGER INTEGRATION at the bedside. Ativan 1 mg IV ordered and administered.
0530: Patient is stable with HR 77. Remains on highflow and nonrebreather mask. SpO2 at 94%. Attempted to clean the patient but he declines. CHG wiped to his torso. Fresh gown placed.
[2024-06-12 07:56] LABS: Glucose - Point of Care 136 mg/dl (70-99)
[2024-06-12] MEDS: NOVOLOG FLEXPEN-LOW RESISTANCE SC ×2 (07:58→12:27)
[2024-06-12] MEDS: ELIQUIS 10 MG PO ×2 (07:59→20:29)
[2024-06-12] MEDS: LIDOCAINE 4% PATCH 1 PATCH TOPICAL (07:59)
[2024-06-12] MEDS: CLARITIN 10 MG PO (07:59)
[2024-06-12] MEDS: BACTROBAN 2% OINTMENT 1 APPLIC NASAL ×2 (07:59→20:30)
[2024-06-12] MEDS: SENOKOT-S 2 TABLET PO (07:59)
[2024-06-12] MEDS: MIRALAX PO ×2 (07:59→08:00)
[2024-06-12] MEDS: MUCINEX 600 MG PO ×2 (07:59→20:29)
[2024-06-12] MEDS: THERAGRAN 1 TABLET PO (07:59)
[2024-06-12] MEDS: DECADRON 4 MG IV ×2 (08:00→20:29)
[2024-06-12] MEDS: ZITHROMAX 500 MG PO (08:00)
[2024-06-12] MEDS: OSCAL CAL 500 500 MG PO (08:00)
[2024-06-12] MEDS: MAG-TAB SR 84 MG PO (08:00)
[2024-06-12] MEDS: VITAMIN D3 (cholecalciferol) 50 MCG PO (08:00)
[2024-06-12] MEDS: OCEAN, SALINE MIST 2 SPRAYS NASAL ×3 (08:00→22:05)
[2024-06-12] MEDS: VITAMIN B-12 1000 MCG PO (08:00)
--- NOTE | 2024-06-12 08:35 | W.PN.HOSP.TC ---
Today's Communication/Plan
-
see bold
Assessment / Plan
Assessment / Plan
HPI: 74-year-old male past medical history of pulmonary fibrosis on 4 L oxygen, crush injury of left chest status post pneumonectomy of left lower lung, COPD, bronchiectasis, restrictive lung disease, MARTÍN positive, Graves' disease/autoimmune
thyroiditis status post iodine earlier this year, hypothyroidism, hearing loss, presenting with severely worsening shortness of breath over the past few days with minimal cough. He had chills but denies fever. He has been having chest pain that is
worse with breathing. He did have some diarrhea and abdominal discomfort yesterday and an episode of loose stools this morning.
He was hypoxemic on 4 L of oxygen down to 70s so he was brought to the hospital.
# Sepsis (leukocytosis, tachycardia, hypotension ) secondary to right lower lobe pneumonia
Chest x-ray shows new right lower lung opacity which could represent pneumonia, chronic interstitial changes in the right upper and lower lung
Flu/COVID-negative, urine Legionella antigen negative, strep antigen negative
Continue IV Zosyn day 4, azithromycin day 2
Trend fever and white count
# Acute on chronic hypoxemic respiratory failure secondary to PE/pneumonia/IPF flare versus concern for underlying pulmonary hypertension/right heart failure
Appreciate pulm input, RV dysfunction on echo is explained by hypoxemia and worsening restrictive lung defect during pneumonia on top of severe ILD/pulmonary fibrosis.
Currently requiring 55 L high flow. Wean oxygen as tolerated. He is on 4 L at baseline
# Interstitial pulmonary fibrosis exacerbation
Appreciate pulm input, continue IV steroids, bronchodilators
#Acute small peripheral right sided PE
Status post IV heparin drip, now on Eliquis
#Epistaxis
Resolved
Humidify oxygen, [facility] QID
# Acute kidney injury
# Mild hyperkalemia
BLANE resolved with IV fluids
Hyperkalemia resolved
# Nonischemic myocardial injury
Patient has chest pain but think this is more likely due to pneumonia
EKG shows sinus tachycardia, incomplete right bundle branch block,
History of crush injury of left chest status post left lower lobe pneumonectomy
COPD/bronchiectasis/restrictive lung disease
History of MARTÍN positive
Graves' disease/autoimmune thyroiditis status post iodine therapy
-Continue levothyroxine
Hearing loss
DVT prophylaxis�Eliquis
DNR
Total time spent to see the patient on the floor, examine the patient, review data and lab results, discuss treatment plan with patient, nursing staff around 41 minutes.
Physical Exam
General: Appears to not feel well, no acute distress
HEENT: Normocephalic, Atraumatic, EOMI, MMM
Respiratory: Bibasilar crackles extending to the mid lung alfred
Cardiac: Normal S1/S2, Regular Rate and Rhythm
GI: Soft, Nontender, Nondistended, Normal Bowel Sounds
Extremities: No Clubbing, Cyanosis, or Edema
Neuro: Nonfocal/Grossly Intact
Psych: Calm, Cooperative
Derm: No Visible lesions
Anticipated Discharge: 24 - 48 hours
Subjective/Interval History
-
Date of Service: June 12, 2024
Epistaxis resolved. Continues to cough and be short of breath. No fever, no vomiting.
Objective Data
-
Labs:
Laboratory Results
06/12/24
04:22
WBC 10.0
Hgb 12.0 L
Hct 37.6 L
Plt Count 160
Sodium 138
Potassium 4.9
Chloride 96 L
Carbon Dioxide 36 H
BUN 27 H
Creatinine 1.2
Glucose 162 H
Calcium 8.7
Vital Signs:
Vital Signs
Temp Pulse Resp BP Pulse Ox
97.9 F 78 23 147/85 93
06/12/24 08:23 06/12/24 07:00 06/12/24 07:00 06/12/24 06:39 06/12/24 07:48
I&O
06/11/24 06/12/24 06/13/24
06:59 06:59 06:59
Intake Total 1760 / 1760 278 / 278
Output Total 1725 / 1725 850 / 850
Balance 35 / 35 -572 / -572
--- NOTE | 2024-06-12 08:46 | PTCARENOTE ---
recd pt 0715 handoff in room, oxygen via high flow and NRB. Awakened easily, able to move in bed, turned, positioned for comfort, blankets straightened. boosted. ordered breakfast. lung sounds as noted, unable to quantify if his breathing feels
better today, but NRB removed and sats did not drop significantly. presently sitting up, eating, call madrigal in reach. took oral meds easily without difficulty.
--- NOTE | 2024-06-12 08:56 | CM ---
CM following re: discharge planning.
CM called [facility] care to check the dueñas for Eliquis:
Eliquis dueñas: 30 days - $255.25. 90 days - $655.99. Both pt and MD are aware.
--- NOTE | 2024-06-12 09:46 | PTCARENOTE ---
OOB to chair min A, did have a brief moment of unsteadiness, gait otherwise good. Did a few steps then sat down in chair on air chair cushion. brief desat to 70%, NRB mask added, gradual improvement. After 4 minutes recovery sat 90% on both
oxygen modalities. call madrigal in reach.
--- NOTE | 2024-06-12 11:18 | W.PN.INTV ---
Today's Communication / Plan
Recommendations
Continue zosyn, azithromax
Await final sputum culture
Continue IV dexamethasone without change
Continue high flow NC for oxygen supplementation, nonrebreather mask prn
Continue eliquis
Guarded prognosis
Assessment
-
74yo M with PMH significant for interstitial lung disease vs pulm fibrosis, restrictive lung disease, COPD, s/p lobectomy L lower lobe who presented from home to ED 06/09/24 for acute on chronic dyspnea and increased oxygen requirements. Also
reports fatigue, weakness, poor oral intake, dehydration, occasional nonproductive cough. Of note, he was worked up for lung transplant at [place] but did not qualify. Incidental finding of CAD during workup. Initial vitals on arrival were BP 74/54, HR
122, SpO2 74%, afebrile. Labs were notable for wbc 16.3, lactic acid 5.5, bnp 8080, troponin 0.103, K 5.3, Cr 1.8. He received 3L IV NS, zosyn, steroids, and required oxygen 12L/min midflow NC. He was admitted to ICU and under ground miner was consulted.
Impression:
Acute on chronic respiratory failure-- secondary to right lower lobe pneumonia. Less likely acute ILD flare, pulm htn/heart failure given CT and echo.
CT chest 06/09/2024: Small peripheral right-sided pulmonary emboli. Extensive right-sided pneumonia on top of underlying interstitial lung disease/pulmonary fibrosis.
Sepsis secondary to pneumonia-- presented with leukocytosis, hypotension, tachycardia-improved
Pneumonia right lower lobe-- Chest xray on admission shows possible pneumonia vs progressive chronic ILD/PF changes
ILD flare, less likely based on CAT scan.
RV dysfunction: Likely due to worsening hypoxemia and interstitial lung disease
Small pulmonary embolism does not explain RV dysfunction.
Nonischemic myocardial injury
BLANE-- Cr 1.8 on admission, baseline appears to be 1.3
Hyperkalemia
Leukocytosis
Lactic acidosis
Conditions prior to admission:
Interstitial lung disease vs pulmonary fibrosis; restrictive lung disease; COPD
Home supplemental O2 requirement of 4L/min NC
Unfortunately does not qualify for lung transplant
H/o chest injury s/p lobectomy L lower lobe
H/o tobacco use and vaping use
AMA positive, anti-Izquierdo/ribonucleoprot Ab positive-- follows with rheumatology
H/o Grave's disease/autoimmune thyroiditis-- s/p radioactive iodine ablation 02/2024
Iatrogenic hypothyroidism-- now on levothyroxine 112mcg, follows with endocrinology; TSH on admission wnl
CAD
Hypercholesterolemia
Hearing impairment
Plan:
Clinical picture explained by right-sided pneumonia on top of underlying pulmonary fibrosis/ILD.
Based on CAT scan I do not see evidence of ILD flare.
Tiny right-sided pulmonary emboli does not explain RV dysfunction plan
RV dysfunction on echocardiogram is explained by hypoxemia and worsening restrictive lung defect during pneumonia on top of severe ILD/pulmonary fibrosis.
-
Afebrile/leukocytosis improved
Hemodynamically stable did not require vasopressors. Responded to IV fluid resuscitation
Creatinine down to 1.2, improved after IV fluids
Lactic acid has cleared
No further IV fluids needed.
-
From the pulmonary perspective no indication for high-dose of steroids for ILD flare.
On a stress dose of steroid-he is chronically on low-dose prednisone.
Continue IV dexamethasone 4mg q12h (started 06/09) for now, also has severe pneumonia. Continue without change for today.
Takes PO prednisone 10mg daily at home
-
Microbiology so far negative: Negative influenza, negative COVID, negative Streptococcus and Legionella antibodies.
MRSA screening negative
Blood cultures negative
Sputum culture preliminary positive for usual respiratory hermelindo and few alonso albicans-- likely contaminant. Await final culture results.
Continue Zosyn (started 06/09/2024).
Continue azithromcyn, atypical coverage (started 06/11/2024).
Oxygenation has not improved-continues to require high concentration of supplemental oxygen.
Repeat chest x-ray 06/11/2024: Continues to demonstrate asymmetrical infiltrates worsening on the right. No pneumothorax. Consistent with severe pneumonia on the right.
Continue supplemental oxygen-currently on high flow 50 L-baseline is 4 L nasal cannula.
High flow oxygen and nonrebreather mask. Will be necessary to maintain pulse ox above 90%.
Wean as tolerated back to home baseline
Nebulizers as needed to aid secretion clearance
Continue OFEV.
-
Mild epistaxis-in the setting of oxygen supplementation and anticoagulant
Saline spray for humidification
-
Echocardiogram noted 06/09/2024: Normal LVEF. Dilated right ventricular with mildly reduced systolic function. Flattened septum in diastole consistent with RV volume overload. Moderate pulmonary hypertension. IVC is dilated and does not collapse.
Mild troponin leak secondary to RV strain.
Denies chest pain
Hold any diuresis.
-
Small peripheral right-sided pulmonary embolism: Status post 24 hours of heparin drip.
Oral anticoagulation started, would complete 3 months.
Tiny pulmonary embolism does not explain RV dysfunction.
-
Consider stool tests if develops persistent diarrhea-- more likely side effect of medication(OFEV) than infectious etiology-benign abdominal exam.
Continue to observe.
Monitor blood sugars-- no history of diabetes, will reassess for insulin requirements prn
Blood sugar target 140-180.
-
Continue home levothyroxine 112 mcg qd (TSH, T3 and T4 normal)
Code status: DNR/DNI-- confirmed with patient on admission
VTE ppx: eliquis 10mg BID
DNR status
-
Pulmonary will follow-respiratory status remained tenuous.
Subjective Dataa
Subjective Data
Date of Service:
Date of Service: June 12, 2024
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
Subjective:
Overnight, desat while anxiously attempting to get out of bed, required 1mg ativan. This morning he reports feeling the same as when he was admitted-- continues to have shortness of breath, occasional nonproductive cough, minimal chest pain with
activity. Reports poor appetite, no difficulty swallowing. Denies lightheadedness, dizziness, nausea, vomiting, diarrhea, abdominal pain. Tolerating regular diet, voiding spontaneously. Supplemental oxygen via high flow NC at 50 L/min. SpO2 92%,
briefly dropped to 86% during conversation but recovered without additional intervention. BP 101-147/72-129, HR 70s-90s, T 97.9. NS 100mL/h.
Review of Systems
General: Fever (negative) and Chills (negative)
HEENT: Dysphagia (negative) and Choking (negative)
Cardiopulmonary: Dyspnea, Cough, Sputum Production (negative), Wheezing (negative) and Edema (negative)
GI: Abdominal Pain (negative), Nausea (negative), Vomiting (negative) and Diarrhea (negative)
Neuro: Dizziness (negative)
Genitourinary: Dysuria (negative)
Objective Data
Data Reviewed
Vital Signs / I&O / Oxygen:
Vital Signs
Temp Pulse Resp BP Pulse Ox
97.9 F 86 22 134/92 92
06/12/24 08:23 06/12/24 10:00 06/12/24 10:00 06/12/24 10:00 06/12/24 10:00
Intake and Output
06/11/24 06/12/24 06/13/24
06:59 06:59 06:59
Intake Total 1760 / 1760 278 / 278 240 / 240
Output Total 1725 / 1725 850 / 850 200 / 200
Balance 35 / 35 -572 / -572 40 / 40
SaO2 92
Nasal Cannula flow liters per 50
minute
Physical Exam
General: Respiratory Distress (Mild with activity) and Pain (negative)
HEENT: Normocephalic and Anicteric
Cardiovascular: S1-S2, Regular Rhythm, Murmur (negative), Peripheral Edema (negative) and Calf Tenderness (negative)
Respiratory: Crackles
GI: Soft and Non Distended
Neurology: Awake, Alert, AO x 3 and No Motor Deficits
Skin: Warm, Dry and Good Color
Labs/Micro/Reports
Lab Data
06/12/24 04:22
06/12/24 04:22
Microbiology
06/09/24 10:49 Blood/Venous Blood Culture - Preliminary
No Growth in 72 hours- Final report to follow
06/09/24 10:49 Blood/Venous Blood Culture - Preliminary
No Growth in 72 hours- Final report to follow
06/11/24 09:05 Sputum Respiratory Culture - Preliminary
Alonso albicans
06/11/24 09:05 Sputum Gram Stain - Preliminary
06/09/24 15:41 Nose MRSA Screen - Final
No Methicillin Resistant Staphylococcus aureus isolated.
06/09/24 16:05 Urine Legionella Urinary Antigen - Final
Negative for Legionella pneumophila Serogroup 1 antigen.
A negative result does not rule out the possiblity of
Legionella infection due to other serogroups or species of
Legionella. Clinical correlation is recommended.
06/09/24 16:05 Urine Streptococcus pneumoniae Antigen (M - Final
Negative for Streptococcus pneumoniae antigen.
A negative result does not exclude infection with
Streptococcus pneumoniae. Clinical correlation is
recommended.
06/09/24 10:59 Nasal Swab Influenza Types A & B (ADILENE) - Final
Negative for Influenza A & B, NAAT
Negative results must be combined with clinical observations
and patient history.
Nucleic Acid Amplification test (NAAT)performed on the
[employer] platform.
[2024-06-12] MEDS: ROXICODONE 10 MG PO (12:00)
[2024-06-12 12:02] LABS: Glucose - Point of Care 140 mg/dl (70-99)
--- NOTE | 2024-06-12 13:15 | CM ---
Addendum entered by Elan Us 06/12/24 15:07:
Pt's spouse and pt's son arrived to visit the pt. Pt's spouse stated that $255.25 for Eliquis per month is affordable. Free 30 day Eliquis coupon provided to pt's spouse.
Per spouse, pt will not be happy to go to any rehab at discharge and she stated that pt will return back home at discharge with recommended services.
Original Note:
CM following re: discharge planning.
Reviewed pt's chart, met with pt. Pt currently requires 50 L HFNC with FIO2 100%, continue supportive care.
CM checked the dueñas for Eliquis 5mg BID and Xarelto 10 mg daily with [facility] prescription plan. Eliquis - 30 day supplies - $255.25 and Xarelto 30 days supply $535.59. Pt stated he will not afford it. MD is aware.
PT and OT will evaluate the pt to determine a level of care at discharge.
D/C plan: uncertain at this time and will depend on pt's progress.
CM will follow with discharge plan updates as hospitalization progresses
[2024-06-12] MEDS: OCEAN, SALINE MIST NASAL (13:44)
--- NOTE | 2024-06-12 15:10 | PTCARENOTE ---
family visiting. maxed on high flow, occasional placement of NRB to boost pulse ox.
[2024-06-12 17:12] LABS: Glucose - Point of Care 163 mg/dl (70-99)
[2024-06-12] MEDS: NOVOLOG FLEXPEN-LOW RESISTANCE 1 UNITS SC (17:37)
--- NOTE | 2024-06-12 18:37 | PTCARENOTE ---
I/O collected, presently eating dinner in bed, using NRB mask rarely at intervals between bites, on 50 liters 90%, 93% pulse ox. no distress. son brought denture back to hospital with loose tooth from earlier glued back in place.
[2024-06-12] MEDS: ATIVAN 0.5 MG IV (20:29)
[2024-06-12] MEDS: NSS (PRESERVATIVE FREE) 0.25 ML IV (20:30)
--- NOTE | 2024-06-12 20:50 | PTCARENOTE ---
Addendum entered by Ginger Boudreaux RN 06/12/24 20:59:
Pt. pulled O2 off, sats 60%, O2 placed back on, recovered quickly to 90%.
Original Note:
Received pt resting in bed, AAOx3. Flat affect, no complaints at this time. NSR on tele, HR 80-90s. BP 110s/70s-80s. No edema. afebrile. On high flow 55L/90% with NRB mask PRN. Lungs with crackles throughout and coarse on the right. Around 20:00,
Spo2 85% at rest. Pt. needed to have BM and requested bedside commode- educated on hypoxia and inability to get OOB at this time. Pt agreeable to use bedpan - had loose brown stool and voided. When turning pt to clean, desatted to 77%, RR 60s,
struggling to recover. RT to bedside and increased fio2 to 100%. NRB on the whole time. Pt. pulled up and sat up. UNION LABORER notified. 0.5mg ativan ordered and administered. Sats recovered slowly, now 93%. R wrist and L AC IVs patent and capped. Call
madrigal in reach.
[2024-06-12] MEDS: ROXICODONE 5 MG PO (21:04)
[2024-06-12 21:46] LABS: Glucose - Point of Care 116 mg/dl (70-99)
[2024-06-12] MEDS: MORPHINE SULFATE 2 MG IV (23:36)
--- NOTE | 2024-06-12 23:57 | PTCARENOTE ---
Pt. continuously pulling off NRB and high flow NC. Desats to 50% very quickly. Recovers within 2-3 minutes after replacing O2 modalities. Educated pt. multiple times on need for O2. Pt. nods in understanding. He reports he feels he needs something
to help him sleep and breath. DIRECT MARKETING REPRESENTATIVE notified. 2mg morphine ordered and administered. Monitoring. No other changes in assessment
[2024-06-13] VITALS (22 sets, daily range): BP systolic 88–155; BP diastolic 56–104; BMI 25.0
[2024-06-13 04:13] LABS: Hematocrit 37.6 % (39.0-52.0); Hemoglobin 12.4 g/dL (13.0-18.0); Mean Corpuscular Hgb 31.9 pg (27.0-31.0); Mean Corpuscular Volume 96.7 fL (80.0-94.0); Mean Platelet Volume 9.9 fL (7.4-10.4); Platelet Count 154 10^3/uL (130-400); Red Blood Cell Count 3.89 10^6/uL (4.70-6.10); Red Cell Dist. Width 15.5 % (11.5-14.5); White Blood Cell Count 10.6 10^3/uL (4.8-10.8)
[2024-06-13 04:51] LABS: Blood Urea Nitrogen 32 mg/dl (9-20); Calcium 8.8 mg/dl (8.4-10.2); Carbon Dioxide 39 mmol/L (22-30); Chloride 94 mmol/L (98-107); Estimated Creatinine Clearance 57 ml/min; Glucose 142 mg/dl (70-99); Potassium 4.8 mmol/L (3.5-5.1); Sodium 135 mmol/L (135-145); eGFR > 60.00
[2024-06-13] MEDS: SYNTHROID 112 MCG PO (05:37)
[2024-06-13] MEDS: ZOSYN 50 IV ×2 (05:37→13:41)
--- NOTE | 2024-06-13 05:43 | PTCARENOTE ---
Pt. continued pulling off O2 masks and desatting to 50-60% despite redirection and education. DRIVER STARTING GATE notified. B/L soft wrist restraints applied for safety ~0400. Pt. educated. Pt. has not pulled off O2 since restraints applied. Maintained sats 88-96%
on high flow 55L/100%. Bathed with CHG, linens changed, mouth/denture care provided. Pt. seems more coherent this morning. AM labs drawn, new #20 R AC placed.
[2024-06-13] MEDS: MORPHINE SULFATE 2 MG IV ×5 (06:08→17:29)
[2024-06-13] MEDS: DUONEB 3 ML INH (08:05)
[2024-06-13 08:18] LABS: Glucose - Point of Care 99 mg/dl (70-99)
[2024-06-13] MEDS: BACTROBAN 2% OINTMENT 1 APPLIC NASAL (08:28)
[2024-06-13] MEDS: NOVOLOG FLEXPEN-LOW RESISTANCE SC ×2 (08:28→12:28)
[2024-06-13] MEDS: DECADRON IV ×3 (08:52→16:30)
[2024-06-13] MEDS: MAG-TAB SR 84 MG PO (08:53)
[2024-06-13] MEDS: ZITHROMAX 500 MG PO (08:53)
[2024-06-13] MEDS: VITAMIN B-12 1000 MCG PO (08:53)
[2024-06-13] MEDS: MUCINEX 600 MG PO (08:53)
[2024-06-13] MEDS: OSCAL CAL 500 500 MG PO (08:53)
[2024-06-13] MEDS: CLARITIN 10 MG PO (08:53)
[2024-06-13] MEDS: MIRALAX 17 GRAMS PO (08:54)
[2024-06-13] MEDS: ELIQUIS 10 MG PO (08:54)
[2024-06-13] MEDS: THERAGRAN 1 TABLET PO (08:54)
[2024-06-13] MEDS: OCEAN, SALINE MIST 2 SPRAYS NASAL (08:54)
[2024-06-13] MEDS: VITAMIN D3 (cholecalciferol) 50 MCG PO (08:54)
[2024-06-13] MEDS: LIDOCAINE 4% PATCH 1 PATCH TOPICAL (08:55)
[2024-06-13] MEDS: FEOSOL 325 MG PO (08:58)
[2024-06-13] MEDS: DECADRON 6 MG IV (09:11)
[2024-06-13] MEDS: MORPHINE SULFATE 1 MG IV ×3 (09:20→14:41)
--- NOTE | 2024-06-13 10:11 | PN.CDI ---
CDI
- -
CDI:
Physician Documentation Request
Admit Date: 06/09/24 12:42
Dear Doctor Do,
Please review the following and provide your response in the progress notes.
Clinical Indicators:
Pt admitted with Acute on Chronic Hypoxic Respiratory Failure 2/2 PE/ PNA/ILD/ Sepsis
Progress note 06/12 ,' ..../IPF flare versus concern for underlying pulmonary hypertension/right heart failure... RV dysfunction on echo is explained by hypoxemia and worsening restrictive lung defect during pneumonia on top of severe ILD/pulmonary
fibrosis.'
Pt was on IV Heparin gtt now on Eliquis
ECHO 06/09, ' Dilated right ventricle with mildly reduced systolic function. Flattened septum in diastole ('D'-shaped left ventricle) consistent with RV volume overload.Moderate pulmonary hypertension.IVC is dilated and does not collapse. Jay
red to the prior on 04/04/2023, right ventricular enlargement and dysfunction is new. Moderate pulmonary hypertension also new.'
Please provide a diagnosis for the above findings/Treatment :
Pulmonary embolism with Acute Cor pulmonale
Pulmonary embolism Only
Other ( please specify)
Use of terms such as suspected, likely, concern for, or probable (associated with a specific diagnosis that is being evaluated, monitored, or treated as if it exists) are acceptable and can be coded in the inpatient setting, when documented at the
time of discharge.
Thank you,
Anuradha Haywodo RN
CDI Specialist
[place] [facility]
Please use your independent medical judgment in providing your response.
--- NOTE | 2024-06-13 10:19 | PN.CDI ---
CDI
- -
CDI:
Physician Documentation Request
Admit Date: 06/09/24 12:42
Dear Doctor Do,
Please review the following and provide your response in the progress notes.
Clinical Indicators:
Pt admitted with Acute on Chronic Hypoxic Respiratory Failure 2/2 PE/ PNA/ILD/ Sepsis
Sodium levels are as below / Pt did get IVFs
06/09/24 06/09/24 06/09/24
10:47 15:41 19:59
Sodium 133 L 133 L 133 L
Based on the above, could you clarify in the progress notes, the appropriate diagnosis, if significant, that supports the above abnormalities and additional evaluation, monitoring and/or treatment rendered:
Hyponatremia
Abnormal lab value only
Other ( please specify)
Use of terms such as suspected, likely, concern for, or probable (associated with a specific diagnosis that is being evaluated, monitored, or treated as if it exists) are acceptable and can be coded in the inpatient setting, when documented at the
time of discharge.
Thank you,
Anuradha Haywood RN
CDI Specialist
[place] [facility]
Please use your independent medical judgment in providing your response.
[2024-06-13 12:07] LABS: Glucose - Point of Care 126 mg/dl (70-99)
--- NOTE | 2024-06-13 12:35 | W.PN.INTV ---
Addendum entered and electronically signed by Feliz Ocampo MD 06/13/24 14:13:
Updated and son at the bedside.
Unfortunately with worsening condition, increased oxygen requirements, increased work of breathing.
On maximal FiO2
Patient does not want intubation and escalation of care per prior conversations.
Will focus on comfort.
Will add morphine every hour as needed
Ativan as needed for comfort
Discontinue unnecessary medications
No further laboratories or x-rays
Okay to continue with oxygen for comfort
Original Note:
Today's Communication / Plan
Recommendations
Continue zosyn, azithromax
Increase IV dexamethasone
Add morphine prn for respiratory distress
Continue high flow NC, nonrebreather mask prn
Positioning with left lung down while in bed
Continue eliquis
Guarded prognosis
Assessment
-
74yo M with PMH significant for interstitial lung disease vs pulm fibrosis, restrictive lung disease, COPD, s/p lobectomy L lower lobe who presented from home to ED 06/09/24 for acute on chronic dyspnea and increased oxygen requirements. Also
reports fatigue, weakness, poor oral intake, dehydration, occasional nonproductive cough. Of note, he was worked up for lung transplant at [facility] but did not qualify. Incidental finding of CAD during workup. Initial vitals on arrival were BP 74/54, HR
122, SpO2 74%, afebrile. Labs were notable for wbc 16.3, lactic acid 5.5, bnp 8080, troponin 0.103, K 5.3, Cr 1.8. He received 3L IV NS, zosyn, steroids, and required oxygen 12L/min midflow NC. He was admitted to ICU and vacuum cleaner repairer was consulted.
Impression:
Acute on chronic respiratory failure-- secondary to right lower lobe pneumonia. Less likely acute ILD flare, pulm htn/heart failure given CT and echo.
CT chest 06/09/2024: Small peripheral right-sided pulmonary emboli. Extensive right-sided pneumonia on top of underlying interstitial lung disease/pulmonary fibrosis.
Sepsis secondary to pneumonia-- presented with leukocytosis, hypotension, tachycardia-improved
Pneumonia right lower lobe-- Chest xray on admission showed possible pneumonia vs progressive chronic ILD/PF changes
RV dysfunction: Likely due to worsening hypoxemia and interstitial lung disease-- Small pulmonary embolism does not explain RV dysfunction.
Nonischemic myocardial injury
BLANE-- Cr 1.8 on admission, baseline appears to be 1.3
Hyperkalemia
Leukocytosis
Lactic acidosis
Conditions prior to admission:
Interstitial lung disease vs pulmonary fibrosis; restrictive lung disease; COPD
Home supplemental O2 requirement of 4L/min NC
Unfortunately does not qualify for lung transplant
H/o chest injury s/p lobectomy L lower lobe
H/o tobacco use and vaping use
AMA positive, anti-Izquierdo/ribonucleoprot Ab positive-- follows with rheumatology
H/o Grave's disease/autoimmune thyroiditis-- s/p radioactive iodine ablation 02/2024
Iatrogenic hypothyroidism-- now on levothyroxine 112mcg, follows with endocrinology; TSH on admission wnl
CAD
Hypercholesterolemia
Hearing impairment
Plan:
Clinical picture explained by right-sided pneumonia on top of underlying pulmonary fibrosis/ILD. No evidence of ILD flare based on CAT scan.
RV dysfunction on echocardiogram is explained by hypoxemia and worsening restrictive lung defect during pneumonia on top of severe ILD/pulmonary fibrosis.
-
Afebrile/leukocytosis improved
Hemodynamically stable did not require vasopressors. Responded to IV fluid resuscitation
Creatinine down to 1.1, improved after IV fluids
Lactic acid has cleared
No further IV fluids needed.
-
From the pulmonary perspective no indication for high-dose of steroids for ILD flare.
On a stress dose of steroid-- he is chronically on low-dose prednisone 10mg daily at home.
Continue IV dexamethasone 6mg q8h (dose increased 06/13/24) for now, also has severe pneumonia.
-
Microbiology so far negative: Negative influenza, negative COVID, negative Streptococcus and Legionella antibodies.
MRSA screening negative
Blood cultures negative
Sputum culture with usual respiratory hermelindo and few alonso albicans-- likely contaminant. Low suspicion of alonso pneumonia given low risk factors.
Continue Zosyn (started 06/09/2024).
Continue azithromcyn, atypical coverage (started 06/11/2024).
Oxygenation has not improved-continues to require high concentration of supplemental oxygen.
Repeat chest x-ray 06/11/2024: Continues to demonstrate asymmetrical infiltrates worsening on the right. No pneumothorax. Consistent with severe pneumonia on the right.
Repeat chest x-ray 06/13/24: Interval increase in bilateral parenchymal airspace opacities, suggesting increase in pneumonia.
Continue supplemental oxygen-currently on high flow 50 L-baseline is 4 L nasal cannula.
High flow oxygen and nonrebreather mask. Will be necessary to maintain pulse ox above 90%.
Wean as tolerated back to home baseline
Nebulizers as needed to aid secretion clearance
Continue OFEV.
Will add morphine 1mg q4h prn for respiratory distress.
Left lateral tilt while in bed to keep left side down and improve ventilation/perfusion to left lung.
-
Mild epistaxis-in the setting of oxygen supplementation and anticoagulant
Saline spray for humidification
-
Echocardiogram noted 06/09/2024: Normal LVEF. Dilated right ventricular with mildly reduced systolic function. Flattened septum in diastole consistent with RV volume overload. Moderate pulmonary hypertension. IVC is dilated and does not collapse.
Mild troponin leak secondary to RV strain.
Denies chest pain
Hold any diuresis.
-
Small peripheral right-sided pulmonary embolism: Status post 24 hours of heparin drip.
Oral anticoagulation started, would complete 3 months.
Tiny pulmonary embolism does not explain RV dysfunction.
-
Consider stool tests if develops persistent diarrhea-- more likely side effect of medication(OFEV) than infectious etiology-benign abdominal exam.
Continue to observe.
Monitor blood sugars-- no history of diabetes, will reassess for insulin requirements prn
Blood sugar target 140-180.
-
Continue home levothyroxine 112 mcg qd (TSH, T3 and T4 normal)
Code status: DNR/DNI-- confirmed with patient on admission
VTE ppx: eliquis 10mg BID
DNR status
-
Pulmonary will follow-respiratory status remained tenuous.
Subjective Dataa
Subjective Data
Date of Service:
Date of Service: June 13, 2024
Chief Complaint: Carrier Packer Follow Up (Acute hypoxemic respiratory failure)
Subjective:
Overnight, had several episodes of desat to 50s-60s% due to patient pulling off O2 masks. Patient seen and evaluated this morning. Complains of shortness of breath, poor appetite. Supplemental oxygen at 50L/min via high flow nasal canula. SpO2
initially 92% but decreased to 85% after medication administration. BP 119/70, HR 92, RR 41, T 97.2.
Review of Systems
General: Fever (negative) and Chills (negative)
HEENT: Dysphagia (negative) and Choking (negative)
Cardiopulmonary: Dyspnea, Cough, Sputum Production (negative), Wheezing (negative) and Edema (negative)
GI: Abdominal Pain (negative), Nausea (negative), Vomiting (negative) and Diarrhea (negative)
Neuro: Dizziness (negative)
Objective Data
Data Reviewed
Vital Signs / I&O / Oxygen:
Vital Signs
Temp Pulse Resp BP Pulse Ox
98.2 F 81 18 120/84 91
06/13/24 12:25 06/13/24 07:00 06/13/24 07:00 06/13/24 07:00 06/13/24 11:46
Intake and Output
06/12/24 06/13/24 06/14/24
06:59 06:59 06:59
Intake Total 278 / 278 960 / 960
Output Total 850 / 850 1200 / 1200
Balance -572 / -572 -240 / -240
SaO2 91
Nasal Cannula flow liters per 55
minute
Physical Exam
General: Respiratory Distress (with any activity and at rest) and Pain (negative)
HEENT: Normocephalic and Anicteric
Cardiovascular: S1-S2, Regular Rhythm, Murmur (negative), Peripheral Edema (negative) and Calf Tenderness (negative)
Respiratory: Crackles
GI: Soft and Non Distended
Neurology: Awake, Alert, Oriented and No Motor Deficits
Skin: Warm, Dry and Good Color
Labs/Micro/Reports
Lab Data
06/13/24 03:59
06/13/24 03:59
Microbiology
06/09/24 10:49 Blood/Venous Blood Culture - Preliminary
No Growth in 4 days- Final report to follow
06/09/24 10:49 Blood/Venous Blood Culture - Preliminary
No Growth in 4 days- Final report to follow
06/11/24 09:05 Sputum Respiratory Culture - Final
Alonso albicans
06/11/24 09:05 Sputum Gram Stain - Final
06/09/24 15:41 Nose MRSA Screen - Final
No Methicillin Resistant Staphylococcus aureus isolated.
--- NOTE | 2024-06-13 12:53 | CM ---
CM following re: discharge planning.
Reviewed pt's chart, met with pt. Pt currently requires 55 L HFNC with FIO2 100%, continue supportive care.
PT and OT will evaluate the pt to determine a level of care at discharge.
D/C plan: uncertain at this time and will depend on pt's progress.
CM will follow with discharge plan updates as hospitalization progresses
[2024-06-13] MEDS: ATIVAN 1 MG IV ×3 (13:41→18:17)
[2024-06-13] MEDS: NSS (PRESERVATIVE FREE) 0.5 ML IV (13:41)
--- NOTE | 2024-06-13 14:20 | CHAP ---
Addendum entered by Misty Hayes 06/13/24 16:23:
. [facility] [place] in [place] provided [facility] as requested.
Original Note:
Sales Engineer [employer] request relayed to on-call research recruiter at family's request. He anticipates arriving around 3pm today.
[2024-06-13] MEDS: OCEAN, SALINE MIST NASAL ×2 (14:31→16:31)
--- NOTE | 2024-06-13 14:46 | PTCARENOTE ---
pt in am awake and restless, ST on monitor , his 02 sat 92% with HFNC and NRBM , he then became very restless and agitated by 0900, sats dropping to 70% , he was given IV morphine at 0920 , he then worsened throughout day with needing multiple
doses of morphine x 3 total and then Lorazepam at 1341, pt was seen by Dr Chan several times , pt has been placed on his L side to increase oxygenation without improvement , pt updated and now here with patient , discussions with on
goal of care for patient , pt is now on comfort care measures , pastoral care at bedside , pt son and are at bedside
--- NOTE | 2024-06-13 15:22 | W.PN.HOSP.TC ---
Today's Communication/Plan
-
Transition to comfort care measures only today
Assessment / Plan
Assessment / Plan
HPI: 74-year-old male past medical history of pulmonary fibrosis on 4 L oxygen, crush injury of left chest status post pneumonectomy of left lower lung, COPD, bronchiectasis, restrictive lung disease, MARTÍN positive, Graves' disease/autoimmune
thyroiditis status post iodine earlier this year, hypothyroidism, hearing loss, presenting with severely worsening shortness of breath over the past few days with minimal cough. He had chills but denies fever. He has been having chest pain that is
worse with breathing. He did have some diarrhea and abdominal discomfort yesterday and an episode of loose stools this morning.
He was hypoxemic on 4 L of oxygen down to 70s so he was brought to the hospital.
#Acute on chronic hypoxemic respiratory failure secondary to PE/pneumonia/IPF flare versus concern for underlying pulmonary hypertension/right heart failure
Appreciate pulm input, RV dysfunction on echo is explained by hypoxemia and worsening restrictive lung defect during pneumonia on top of severe ILD/pulmonary fibrosis.
Patient has deteriorated despite maximal medical intervention, he is desatting on 55 L high flow plus nonrebreather
1/3 Appreciate facility sales and admin input, facility sales and admin has had a discussion with family at bedside, updating them regarding his poor status and clinical decline
1/3 Family agrees to transition patient to comfort care measures only
Stop unnecessary medications, start comfort measures only
#Sepsis (leukocytosis, tachycardia, hypotension ) secondary to right lower lobe pneumonia
Chest x-ray shows new right lower lung opacity which could represent pneumonia, chronic interstitial changes in the right upper and lower lung
Flu/COVID-negative, urine Legionella antigen negative, strep antigen negative
Stop IV Zosyn, stop azithromycin, stop blood work
#Interstitial pulmonary fibrosis exacerbation
Appreciate pulm input, continue IV steroids, bronchodilators
#Acute small peripheral right sided PE with acute cor pulmonale
Status post IV heparin drip
Stop Eliquis
#Epistaxis
Resolved
Humidify oxygen, [place] QID
#Acute kidney injury
#Mild hyperkalemia
BLANE resolved with IV fluids
Hyperkalemia resolved
#Hyponatremia
Monitor
#Nonischemic myocardial injury
Patient has chest pain but think this is more likely due to pneumonia
EKG shows sinus tachycardia, incomplete right bundle branch block,
History of crush injury of left chest status post left lower lobe pneumonectomy
COPD/bronchiectasis/restrictive lung disease
History of MARTÍN positive
Graves' disease/autoimmune thyroiditis status post iodine therapy
-Stop levothyroxine
Hearing loss
DVT prophylaxis�Eliquis
DNR
Total time spent to see the patient on the floor, examine the patient, review data and lab results, discuss treatment plan with patient, nursing staff around 50 minutes.
Physical Exam
General: Mild respiratory distress noted
HEENT: Normocephalic, Atraumatic, EOMI, MMM
Respiratory: Bibasilar crackles extending to the mid lung alfred
Cardiac: Normal S1/S2, Regular Rate and Rhythm
GI: Soft, Nontender, Nondistended, Normal Bowel Sounds
Extremities: No Clubbing, Cyanosis, or Edema
Neuro: Nonfocal/Grossly Intact
Anticipated Discharge: Today
Subjective/Interval History
-
Date of Service: June 13, 2024
Patient reports shortness of breath and cough are worse. He also has chest pain. He is desatting despite 55 L high flow and NRB. No fever, no vomiting. Epistaxis resolved.
Objective Data
-
Labs:
Laboratory Results
06/13/24
03:59
WBC 10.6
Hgb 12.4 L
Hct 37.6 L
Plt Count 154
Sodium 135
Potassium 4.8
Chloride 94 L
Carbon Dioxide 39 H
BUN 32 H
Creatinine 1.1
Glucose 142 H
Calcium 8.8
Vital Signs:
Vital Signs
Temp Pulse Resp BP Pulse Ox
97.9 F 81 18 120/84 91
06/13/24 08:22 06/13/24 07:00 06/13/24 07:00 06/13/24 07:00 06/13/24 07:37
I&O
06/12/24 06/13/24 06/14/24
06:59 06:59 06:59
Intake Total 278 / 278 960 / 960
Output Total 850 / 850 1200 / 1200
Balance -572 / -572 -240 / -240
[2024-06-13] MEDS: ATIVAN 2 MG IV (15:48)
--- NOTE | 2024-06-13 15:54 | PTCARENOTE ---
pt restless and agitated, given morphine and lorazepam as ordered, not effective , Dr Sanders aware and increased doses of morphine and Ativan for pts respiratory distress , family at bedside emotional support given
--- NOTE | 2024-06-13 17:47 | PTCARENOTE ---
pt weaned off of NRBM , pt is comfortable and no longer showing signs of Resp distress , sats currently are 83% , plan to wean off HFNC , family at bedside
--- NOTE | 2024-06-13 18:54 | PTCARENOTE ---
pt taken off of HFNC , pt sats 60% on 4L NC , family at bedside
--- NOTE | 2024-06-13 21:02 | W.PN.DEATH ---
Pronouncement of
-
Called to see patient to pronounce.
No spontaneous heart tones or respirations noted.
Patient not responsive to verbal stimuli.
Patient is pronounced .
Time of : 20:15
Date of : 06/13/24
Cause of : Acute hypoxemic respiratory failure, Right ventricle dysfunction, pulmonary embolism, pneumonia
Family Notified: Yes
--- NOTE | 2024-06-13 21:27 | PTCARENOTE ---
Addendum entered by Junaid Liu RN 06/13/24 22:09:
Wedding band on L hand sent down with pt to chris.
Original Note:
Assumed care of pt at change of shift. Son at bedside. Pt HR gradually decreased from 80s to 30s shortly after 1999. OFFAL ICER POULTRY Ion Nance at bedside. Pt official time of 2014. [facility] contacted.
--- NOTE | 2024-06-14 17:33 | W.DCSUMMARY ---
Discharge Summary
Discharge Data
Date of Admission: 06/09/24
Date of Discharge: 06/13/24
-
Pending Results: No
Hospital Course
Date of expiration: 06/13/2024
Time of expiration: 20:15
diagnosis:
Acute on chronic hypoxic respiratory failure
Sepsis
Right lower lobe pneumonia
Interstitial pulmonary fibrosis exacerbation
Acute small peripheral right-sided pulmonary embolism
Epistaxis
Acute kidney injury
Mild hyperkalemia
Hyponatremia
Nonischemic myocardial injury
Consults: Machine Finisher
Hospital course:
74-year-old male with a past medical history of pulmonary fibrosis on 4 L oxygen, crush injury of left chest status post pneumonectomy of left lower lung, COPD, bronchiectasis, restrictive lung disease, hypothyroidism, and hearing loss was admitted
for acute on chronic hypoxic respiratory failure secondary to pneumonia, pulmonary fibrosis exacerbation, and acute right-sided pulmonary embolism. Patient was seen in conjunction with the daytime caregiver/electrical maintenance worker. He was treated with IV
antibiotics, IV steroids, and IV heparin drip.
Patient is usually on 4 L of oxygen. He required 55 L high flow. Despite maximal medical intervention, he deteriorated, and required 55 L plus nonrebreather. He is a DO NOT RESUSCITATE. The daytime caregiver had a meeting with the family, and informed
the family of his poor prognosis. Family transitioned patient to comfort care measures only on 06/13/2023. Patient peacefully at 20:15. Family at bedside, condolences offered.
Discharge Plan
-
Patient Disposition:
Date/Time
Date/Time: 06/13/24 20:15
Discharge Date and Time
Discharge Date/Time: 06/13/24 22:00
Print Language: [place]
== END 2024-06-13 22:00 | disposition expired | DRG 871 ==
LOC: ICU 12:42
PROVIDERS: Internal Medicine Critical Care Medicine; Student in an Organized Health Care Education/Training Program; ADMITTING PHYSICIAN Hospitalist; ATTENDING PHYSICIAN Family Medicine; CONSULT PHYSICIAN Internal Medicine Critical Care Medicine; EMERGENCY PHYSICIAN Emergency Medicine; FAMILY PHYSICIAN Family Medicine
DX: A41.89 Other specified sepsis (principal); I26.99 Other pulmonary embolism without acute cor pulmonale; J18.9 Pneumonia, unspecified organism; J96.21 Acute and chronic respiratory failure with hypoxia; I5A Non-ischemic myocardial injury (non-traumatic); N17.9 Acute kidney failure, unspecified; E87.1 Hypo-osmolality and hyponatremia; J47.0 Bronchiectasis with acute lower respiratory infection; J44.0 Chronic obstructive pulmonary disease with (acute) lower respiratory infection; Z11.52 Encounter for screening for COVID-19; Z87.891 Personal history of nicotine dependence; E87.5 Hyperkalemia; E05.00 Thyrotoxicosis with diffuse goiter without thyrotoxic crisis or storm; E06.3 Autoimmune thyroiditis; Z66 Do not resuscitate; Z51.5 Encounter for palliative care; J84.10 Pulmonary fibrosis, unspecified
CPT/HCPCS: 71045; 71275; 80048; 80053; 82805; 82962; 83036; 83605; 83735; 83880; 84100; 84439; 84443; 84481; 84484; 85025; 85027; 85610; 85730; 87040; 87070; 87205; 87449; 87502; 87811; 87899; 93005; 93306; 94640; 96365; 96375; 99291; Q9967